=== PATIENT | female | born 1970 | race Caucasian/White ===

== ENCOUNTER 2016-10-18 14:52 | Emergency (ER) | payer OTHER ==
[~2016-10-18] VITALS: Ht 162.6 cm; Wt 62.1 kg
[2016-10-18 14:57] VITALS: TEMP 36.8; Ht 162.6 cm; Wt 62.1 kg
[2016-10-18] MEDS ORDERED: DIAZEPAM INJ 5 MG/ML 2 ML CARP IM STA (15:18)
[2016-10-18] MEDS ORDERED: KETOROLAC TROMETHAMINE 60 MG/2 ML VIAL IM STA (15:18)
[2016-10-18] MEDS ORDERED: NAPR1TAB9 PO (15:41)
[2016-10-18] MEDS ORDERED: SERT50TA PO (15:41)
[2016-10-18] MEDS ORDERED: DIAZEPAM 5MG TAB PO ONE (16:00)
[2016-10-18] MEDS ORDERED: DIAZ-165 PO (17:28)
[2016-10-18] MEDS ORDERED: NAPR-1169 PO (17:28)
--- NOTE | 2016-10-18 17:34 | EMERGENCY ROOM VISIT NOTE ---
ED Visit Note First contact with patient: 15:01 CHIEF COMPLAINT: Low back pain HISTORY OF PRESENT ILLNESS: This 46-year-old female presents to the emergency department with her daughter with complaints of mid and low back pain that started 4 days ago. 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 She has had pain radiating from her mid back just below her shoulder blades all the way to her lower back and down her right leg. The pain has gotten progressively worse to the point that she had trouble getting out of bed today. The pain was gradual in onset, is now constant and worse with movement, currently rates as 8/10. She has tried Tylenol and Aleve intermittently for the pain with no relief. Denies any bowel or bladder difficulties. There has been no leg numbness or weakness. No recent direct trauma. No vomiting or abdominal pain. REVIEW OF SYSTEMS: No significant prior back injuries, no abdominal pain, vomiting or diarrhea, no chest pain or shortness of breath. No dysuria or increased urinary frequency. PMH: The patient is healthy; there is no significant medical or surgical history. SOCIAL HISTORY: Patient lives at home. She denies tobacco, alcohol, recreational drug use. PHYSICAL EXAM: Vital Signs: Reviewed Nurse's notes. MENTAL STATUS: Alert and oriented. NECK: Supple, non-tender. ABDOMEN: Soft, non-tender, no masses or organs felt. Bowel sounds normoactive. BACK: Tenderness in the paraspinous muscles in the midthoracic and lumbar area. No tenderness over the spinous processes of the thoracic or lumbar vertebrae. LEGS: Normal strength including dorsi-flexion and plantar flexion of the feet. Normal sensation bilaterally. Negative bilateral straight leg raising, normal and symmetrical patellar and Achilles deep tendon reflexes. Normal gait observed. EMERGENCY DEPARTMENT COURSE: I examined the patient. Differential diagnosis includes back sprain, strain, muscle spasm, I doubt vertebral fracture or subluxation. Given the lack of traumatic injury to the patient's back and no red flag symptoms, I do not feel any imaging is warranted at this time to evaluate the patient's back pain. Patient was treated with IM Toradol and PO Valium, with much improved symptoms on reassessment. Patient was provided with prescription Naprosyn and Valium, and encouraged to follow up with her PCP and Workmen's Comp. regarding management of her pain. She was also given return precautions. She verbalized understanding, and was discharged home in stable condition and ambulatory. Problem List Medical Problems: (1) Diverticulitis of colon Permanent Comment: Hospitalized twice at [facility]. Status: Resolved Current/Historical Medications Scheduled Diazepam (Valium), 5 MG PO QID Naproxen (Naprosyn), 500 MG PO BID Sertraline (Zoloft), 50 MG PO DAILY Scheduled PRN Naproxen (Aleve), 220 MG PO BID PRN for Pain Allergies Coded Allergies: No Known Allergies (Unverified , 10/18/16) Vital Signs Date Time Temp Pulse Resp B/P (MAP) Pulse Ox O2 Delivery O2 Flow Rate FiO2 10/18/16 17:49 89 18 121/88 99 10/18/16 14:57 36.8 96 18 147/92 98 Room Air Medications Administered Medications (Trade) Dose Ordered Sig/Jez Route Start Time Stop Time Status Last Admin Dose Admin Ketorolac Tromethamine (Toradol Inj) 60 mg NOW STAT IM 10/18/16 15:18 10/18/16 15:19 DC 10/18/16 15:40 60 MG Diazepam (Valium Tab) 10 mg NOW ONCE PO 10/18/16 16:00 10/18/16 16:01 DC 10/18/16 16:15 10 MG Departure Information Impression Primary Impression: Back strain Dispostion Home / Self-Care Condition GOOD Prescriptions Diazepam (Valium) 5 Mg Tab 5 MG PO QID for 3 Days, #12 TAB Prov: Neelima Moore CRNP 10/18/16 Naproxen (Naprosyn) 500 Mg Tab 500 MG PO BID for 21 Days, #42 TAB Prov: Neelima Moore, SALES PRODUCER 10/18/16 Referrals Beltran Mejia M.D.([facility]) (PCP) Patient Instructions ED Exercises Lumbar Muscles, ED Sprain Strain Lumbar, [facility] Additional Instructions You have been treated in the Emergency Department for Back Pain. You have received pain medicine in the emergency department which impairs your ability to operate a vehicle. It is illegal for you to drive after receiving these medicines. You have been prescribed Naprosyn 1 tablet twice a day to be used for pain control. This is an NSAID medication. Do not take other NSAID medication such as Aleve, Advil, ibuprofen, aspirin, while you're taking this medication. You been prescribed Valium 1 tablet orally, 3-4 times per day as needed for back spasms. This medication may make you drowsy, do not drive or drink alcohol while you're taking it. Always take all medications as prescribed. For additional pain control, you can use the following [id number] medicines (if >12 yo): - Extra strength (500mg/tab) Tylenol (acetaminophen) 1-2 tabs every 6-8 hours as needed. Do not exceed 6 tablets in a 24 hour period. Avoid taking more than 3 grams (3000 mg) of Tylenol per day. This includes any other sources of acetaminophen you may take on a regular basis. Use a heating pad on the affected area for improved comfort and continued soothing relief. You should schedule a follow-up appointment in 2-3 days with the provider directed by your workman's comp for further evaluation and treatment of your back pain. Return to the Emergency Department if your current symptoms worsen despite treatment course outlined above, or if you develop any of the following symptoms : Severe worsening back pain in spite of medications, loss of control of your bowel or bladder, numbness or tingling in your groin, or development of a fever. Work Instructions Return To Work: 2 days Problem Qualifiers Primary Impression: Back strain Encounter type: initial encounter Qualified Codes: S39.012A - Strain of muscle, fascia and tendon of lower back, initial encounter
[2016-10-18 17:49] VITALS: BP 121/88; PULSE 89; O2SAT 99
== END 2016-10-18 17:51 | disposition home or self-care (01) ==
LOC: C.EDB 14:52 → C.EDD 17:51
DX: S39.012A Strain of muscle, fascia and tendon of lower back, initial encounter (principal); X50.0XXA Overexertion from strenuous movement or load, initial encounter; Y99.0 Civilian activity done for income or pay; Y93.89 Activity, other specified; Z79.899 Other long term (current) drug therapy

== ENCOUNTER → 2016-10-22 | Outpatient (CLI) | payer OTHER ==
[~2016-10-22] MED LIST: DIAZ-165 PO; NAPR-1169 PO; NAPR1TAB9 PO; SERT50TA PO
--- NOTE | 2016-10-22 15:10 | DIAGNOSTIC IMAGING REPORT ---
L-SPINE MIN 4 VIEWS ROUTINE CLINICAL HISTORY: BACK PAIN R/O COMPRESSION FX COMPARISON STUDY: No previous studies for comparison. FINDINGS: There is a transitional vertebra present. There are 6 nonrib-bearing lumbar type vertebral bodies. Accurate numbering is not possible without entire spine series. There is a grade 1 spondylolisthesis of L5 on L6. There is moderate facet joint arthropathy. No acute fractures are visualized. IMPRESSION: 1. No acute fractures 2. Transitional vertebra. Facet joint arthropathy. Grade 1 spondylolisthesis of L5 on L6. Electronically signed by: Reymundo Denney M.D. 10/22/2016 3:09 PM Dictated Date/Time: 10/22/2016 3:07 PM
== END | disposition home or self-care (01) ==
LOC: C.RAD1850 14:25
PROVIDERS: ATTEND Preventive Medicine Occupational Medicine
DX: S39.012A Strain of muscle, fascia and tendon of lower back, initial encounter (principal); X58.XXXA Exposure to other specified factors, initial encounter; M53.86 Other specified dorsopathies, lumbar region

== ENCOUNTER → 2016-11-01 | Outpatient (CLI) | payer OTHER ==
[~2016-11-01] MED LIST changes: -DIAZ-165 PO
--- NOTE | 2016-11-01 10:21 | DIAGNOSTIC IMAGING REPORT ---
LUMBAR SPINE W/O CONTRAST HISTORY: Pain. Radiculopathy. LUMBAR STRAIN WITH RADICULAR SYMPTOMS TECHNIQUE: Multiplanar multisequence MRI of the lumbar spine was performed without the use of contrast. COMPARISON: None. FINDINGS: For the purpose of the report the L5-S1 disc space will be located on axial image 23 of 25. Normal signal characteristics the vertebral bodies. Grade 1 anterolisthesis of L4 and L5 with a maximum anterolisthesis of 4 mm. Degenerative changes of posterior elements. L1-L2: No significant central canal or neural foraminal narrowing. L2-L3: No significant central canal or neural foraminal narrowing. L3-L4: Mild right posterior disc bulge. Minimal impact right anterior thecal sac. L4-L5: Moderate right posterior disc herniation. Moderate impact anterior thecal sac. Moderate narrowing right neuroforamina. L5-S1: No significant central canal or neural foraminal narrowing. IMPRESSION: 1. Right posterior disc herniation L4-L5 with moderate narrowing right neuroforamina and moderate impact anterior thecal sac. 2. These findings are accentuated by a grade 1 anterolisthesis of L4 on L5. 3. Mild right posterior disc bulge L3-L4. The above report was generated using voice recognition software. It may contain grammatical, syntax or spelling errors. Electronically signed by: [place] M.D. 11/01/2016 10:19 AM Dictated Date/Time: 11/01/2016 10:14 AM
== END | disposition home or self-care (01) ==
LOC: C.MRI 08:49
PROVIDERS: ATTEND Preventive Medicine Occupational Medicine
DX: M51.16 Intervertebral disc disorders with radiculopathy, lumbar region (principal)

== ENCOUNTER → 2016-12-28 | Outpatient (CLI) | payer OTHER ==
[~2016-12-28] MED LIST changes: -NAPR-1169 PO
[2016-12-28 13:41] LABS: BASO % 0.1 %; BASO ABS # 0.02 K/uL (0-0.2); COMPLETE YES; EOS % 0.2 %; HEMATOCRIT 40.3 % (37-47); IG% 0.2 %; LYMPH % 9.1 %; LYMPH ABS # 1.32 K/uL (1.2-3.4); MEAN CELL VOLUME 93.5 fL (80-100); MEAN CORPUSCULAR HEMOGLOBIN 31.3 pg (25-34); MEAN CORPUSCULAR HGB CONC 33.5 g/dl (32-36); MEAN PLATELET VOLUME 10.5 fL (7.4-10.4); MONO % 7.2 %; NEUT % 83.2 %; PLATELET COUNT 242 K/uL (130-400); RED BLOOD COUNT 4.31 M/uL (4.2-5.4)
[2016-12-28 13:53] LABS: PREG INTERNAL NEGATIVE QC NEG CLEAR BACKGROUND; PREG INTERNAL POSITIVE QC POS CONTROL LINE
== END | disposition home or self-care (01) ==
LOC: C.LABBC 09:49
PROVIDERS: ATTEND Orthopaedic Surgery Orthopaedic Surgery of the Spine
DX: Z01.812 Encounter for preprocedural laboratory examination (principal)

== ENCOUNTER 2017-01-24 08:14 | Inpatient (IN) | payer OTHER ==
[2017-01-08 10:33] VITALS: BMI 21.0
--- NOTE | 2017-01-23 17:29 | HISTORY & PHYSICAL EXAMINATION ---
DATE OF ADMISSION: 01/24/2017 CHIEF COMPLAINT: Back pain, lower extremity difficulty, paresthesias, numbness and tingling. She is scheduled for a posterior lumbar interbody fusion at L4-L5 lumbar spine. PAST MEDICAL HISTORY: Negative for asthma, wheezing, shortness of breath. No cardiac issues. No diabetes, no anemias, no anxiety, no pulmonary kidney or renal issues. Positive for diverticulitis. SOCIAL HISTORY: No smoking. Minimal alcohol, no illicit drug use. PAST SURGICAL HISTORY: No past surgeries. ALLERGIES: None. CURRENT MEDICATIONS: None. REVIEW OF SYSTEMS: Denies blurred vision, double vision, tinnitus or vertigo. Denies chest pain, palpitations. No asthma, wheezing, shortness of breath. No nausea, vomiting, urgency, frequency, dysuria. She admits to back pain, lower extremity difficulty, paresthesias. She has decreased range of motion, flexion, extension and side bending. She has adequate motor strength, 2/4 knee jerk reflexes, 1/4 of the Achilles, 5/5 motor, slight loss of sensation. OBJECTIVE: GENERAL: She is 5 130 pounds. No terrible distress. CARDIAC: Normal S1, S2. LUNGS: Clear to auscultation. No rales, rhonchi or wheezing. ABDOMEN: Soft, nontender. VITAL SIGNS: Blood pressure 120/80, pulse 80. IMAGING: Spondylolisthesis of the spine L4-L5. ASSESSMENT: Spondylolisthesis L4-L5. DISPOSITION: Includes a posterior lumbar interbody fusion L4-L5 lumbar spine.
[2017-01-24] VITALS (9 sets, daily range): BP systolic 100–150; BP diastolic 59–84; PULSE 68–82; TEMP 36.2–36.8; O2SAT 94–100; Ht 162.6 cm; Wt 57.7 kg
[~2017-01-24] VITALS: Ht 162.6 cm; Wt 57.7 kg
[~2017-01-24 08:14] MED LIST changes: +CEFAZOLIN 2000MG IV PUSH 10 ML IV SCH; +HYDR-4079 PO; +LACTATED RINGER'S 1000ML 1,000 ML IV SCH; +LACTATED RINGER'S 1000ML IV SCH; -NAPR1TAB9 PO; -SERT50TA PO
[2017-01-24] MEDS ORDERED: DEXAMETHASONE SOD INJ 4 MG/ML VIAL ONE (09:22)
[2017-01-24] MEDS ORDERED: ONDANSETRON INJ 2 MG/ML 2 ML VIAL ONE (09:22)
[2017-01-24] MEDS ORDERED: MIDAZOLAM HCL 1 MG/ML 2ML VIAL ONE (09:22)
[2017-01-24] MEDS ORDERED: LIDOCAINE HCL 2% 2 ML VIAL (20MG/ML) ONE (09:22)
[2017-01-24] MEDS ORDERED: NEOSTIGMINE METHYLSULFATE 1 MG/ML 10ML VIAL ONE (09:22)
[2017-01-24] MEDS ORDERED: FENTANYL CITRATE INJ 50 MCG/1 ML 2 ML VIAL ONE ×2 (09:22→13:14)
[2017-01-24] MEDS ORDERED: ROCURONIUM BROMIDE 10 MG/ML 5 ML VIAL IV ONE (09:22)
[2017-01-24] MEDS ORDERED: PROPOFOL IV EMULSION 10 MG/ML 20 ML VIAL IV ONE (09:22)
[2017-01-24] MEDS ORDERED: GLYCOPYRROLATE INJ 0.2 MG/ML VIAL ONE (09:22)
[2017-01-24] MEDS ORDERED: GELATIN SPONGE SZ 100 ONE ×2 (11:09→13:47)
[2017-01-24] MEDS ORDERED: THROMBIN FOR SOLN 20000 UNIT KIT ONE (11:09)
[2017-01-24] MEDS ORDERED: BUPIVACAINE/EPINEPHRINE 0.5% MPF 1:200,000 30 ML VIAL ONE (11:10)
[2017-01-24] MEDS ORDERED: VANCOMYCIN HCL 1000MG/20ML VIAL ONE (11:10)
[2017-01-24] MEDS ORDERED: BACITRACIN 50000 UNIT VIAL ONE (11:11)
--- NOTE | 2017-01-24 11:31 | History & Physical Bridge Note ---
H&P Re-Evaluation Bridge Note: I have examined the patient, reviewed the History & Physical and in the interval since the performance of the History & Physical I have noted the following changes of clinical significance: No changes noted
[2017-01-24] MEDS ORDERED: EpHEDrine SULFATE 50MG/5ML SYR ONE (12:25)
[2017-01-24] MEDS ORDERED: EpHEDrine SULFATE INJ 50 MG/ML AMP IV PRN (12:30)
[2017-01-24] MEDS ORDERED: ATROPINE SULFATE 0.1 MG/ML 5ML SYR IV PRN (12:30)
[2017-01-24] MEDS ORDERED: ONDANSETRON INJ 2 MG/ML 2 ML VIAL IV PRN ×2 (12:30→14:30)
[2017-01-24] MEDS ORDERED: PHENYLEPHRINE 100MCG/ML 5ML SYR ONE (12:56)
--- NOTE | 2017-01-24 14:12 | DIAGNOSTIC IMAGING REPORT ---
SPINE ONE VIEW, ANY LEVEL CLINICAL HISTORY: 47 years-old Female presenting with L4-L5 interbody fusion. TECHNIQUE: 1 fluoroscopic spot image(s) obtained as part of an intraoperative procedure. COMPARISON: 11/20/2016. FINDINGS/IMPRESSION: There has been interval transpedicular screw and alton fixation of L4-5 with interbody spacer placement. Grossly normal anatomic alignment. Please see surgical report for further details. Fluoroscopy dosage (mGy): 4.74. Fluoroscopy time: 10.1 seconds. Number of fluoroscopic spot images: 1. Electronically signed by: Wayne Cook M.D. 01/24/2017 2:11 PM Dictated Date/Time: 01/24/2017 2:10 PM
[2017-01-24] MEDS ORDERED: SODIUM CHLORIDE 0.9% 1000ML 1,000 ML IV SCH (14:27)
--- NOTE | 2017-01-24 14:29 | [facility] Post Operative Brief Note ---
Immediate Operative Summary Operative Date Jan 24, 2017. Pre-Operative Diagnosis Spondylolisthesis L4-L5. Post-Operative Diagnosis Spondylolisthesis L4-L5. Procedure(s) Performed L4-L5 Posterior Lumbar Interbody Fusion Surgeon Dr. Chilel Box Repairer Surgeon(s) Fracisco Collazo PA-C Estimated Blood Loss 350ml Findings spondy l4-5 Specimens none per surgeon Complication(s) None Disposition Recovery Room / PACU
[2017-01-24] MEDS ORDERED: PROMETHAZINE HCL INJ 12.5 MG in SODIUM CHLORIDE 0.9% 50ML 50 ML IV PRN (14:30)
[2017-01-24] MEDS ORDERED: METOCLOPRAMIDE HCL INJ 5 MG/ML 2 ML VIAL IV PRN (14:30)
[2017-01-24] MEDS ORDERED: NALOXONE HCL 0.4 MG/1 ML VIAL/CARP IV PRN (14:30)
[2017-01-24] MEDS ORDERED: LORAZEPAM INJ 1 MG in SYRINGE 0.5 ML IV PRN (14:30)
[2017-01-24] MEDS ORDERED: LORAZEPAM 1 MG TAB PO PRN (14:30)
[2017-01-24] MEDS ORDERED: MAGNESIUM HYDROXIDE SUSP 30 ML UDC PO PRN (14:30)
[2017-01-24] MEDS ORDERED: ACETAMINOPHEN 325 MG TAB PO PRN (14:30)
[2017-01-24] MEDS ORDERED: HYDROmorphone HCL 0.5MG/ML 50 ML CASSETTE ONE (14:39)
[2017-01-24] MEDS: FENTANYL CITRATE INJ 50 MCG/1 ML 2 ML VIAL IV PRN ×4 (14:44→15:03)
[2017-01-24] MEDS ORDERED: NURSING VERBAL MED ORDER ONE (14:45)
[2017-01-24] MEDS ORDERED: HYDROmorphone INJ 1 MG/ML SYR ONE (14:56)
--- NOTE | 2017-01-24 14:57 | OPERATIVE REPORT ---
DATE OF OPERATION: 01/24/2017 PREOPERATIVE DIAGNOSIS: Spondylolisthesis 4 on 5. POSTOPERATIVE DIAGNOSIS: Same. PROCEDURE: Included decompression laminectomy, complete laminectomy of L4, partial laminectomy of 5, foraminotomy, partial facetectomy, pedicle screw instrumentation and reduction of spondylolisthesis 4-5, posterior lumbar interbody fusion and complete discectomy left and right lumbar spine at L4-L5, interbody spacer implant cage placed at L4-L5. SURGEON: Dr. Chilel. DESIZING MACHINE OPERATOR HEAD END: Fracisco Collazo PA-C. COMPLICATIONS: None. OPERATION AND FINDINGS: DESCRIPTION OF PROCEDURE: The patient was taken to the operating room, a general intubated anesthetic provided to the patient. Placed prone, scrubbed, prepped and draped sterile. We made a skin incision, fascial incision, putting in a deep self-retaining. It was a significant dissection down to the lamina and facet joints. I put in a deep self-retaining retractor, did a complete laminectomy at 4, foraminotomies, partial facetectomy, significant nerve root compromise. I was pleased with the decompression. We irrigated. We then went to the pedicle screw construct safely getting pedicle screws into 5 and 4 bilaterally using anatomic landmarks and C-arm guidance, I was pleased with the placement. We then did a formal discectomy on the left hand side and the right hand side, completely evacuating the disc at this level. We then bone grafted this with autograft, plus an interbody device placed on the left and on the right elevating up the interspace and performing a reduction as well. We locked down the construct and began our closure. We first bone grafted out over the transverse process to complete the 360 fusion, placed some vancomycin powder deep to the wound, closed fascia to fascia over Hemovac drain with 1 Vicryl suture, 2-0 in the subcuticular layer, staple gun on the skin. Sterile dressing applied and drain was activated. The patient was then returned to PACU in improved stable condition. ESTIMATED BLOOD LOSS: 350. SPONGE AND NEEDLE COUNT: Correct at the close of the procedure. IMPLANTS USED: By the [employer]. I attest to the content of the Intraoperative Record and any orders documented therein. Any exception s are noted below.
[2017-01-24] MEDS ORDERED: HYDROmorphone INJ 2 MG/ML SYR/VIAL IV PRN (15:30)
[2017-01-24 15:31] LABS: HEMATOCRIT 36.4 % (37-47)
--- NOTE | 2017-01-24 15:57 | Anesthesiology Progress Note ---
Anesthesia Post Op Note Date & Time Jan 24, 2017 at 15:57 Vital Signs Pain Intensity: 5 Vital Signs Past 12 Hours Date Time Temp Pulse Resp B/P (MAP) Pulse Ox O2 Delivery O2 Flow Rate FiO2 01/24/17 15:50 80 12 106/59 98 Nasal Cannula 2 01/24/17 15:40 36.9 69 12 105/48 98 Nasal Cannula 2 01/24/17 15:30 76 13 111/64 99 Nasal Cannula 2 01/24/17 15:20 71 12 112/66 99 Nasal Cannula 2 01/24/17 15:10 70 15 112/60 99 Nasal Cannula 2 01/24/17 15:00 83 16 116/60 98 Nasal Cannula 2 01/24/17 14:50 80 29 110/66 100 Oxymask 10 01/24/17 14:40 123 15 123/87 100 Oxymask 10 01/24/17 14:34 36.6 96 12 114/79 100 Oxymask 10 01/24/17 08:43 36.7 81 16 150/84 99 Room Air Notes Mental Status: alert / awake / arousable, participated in evaluation Pt Amnestic to Procedure: Yes Nausea / Vomiting: adequately controlled Pain: adequately controlled Airway Patency, RR, SpO2: stable & adequate BP & HR: stable & adequate Hydration State: stable & adequate Anesthetic Complications: no major complications apparent
[2017-01-24] MEDS: HYDROmorphone HCL 0.5MG/ML 50 ML CASSETTE IV PRN ×2 (16:14→22:54)
[2017-01-24] MEDS: KETOROLAC TROMETHAMINE 30 MG/ML VIAL IV SCH ×2 (17:54→23:44)
[2017-01-24] MEDS: SODIUM CHLORIDE 0.9% 1000ML 1,000 ML IV SCH (17:54)
[2017-01-24] MEDS ORDERED: INFLUENZA ADMINISTRATION CHARGE ONE (19:30)
[2017-01-24] MEDS ORDERED: INFLUENZA VIRUS QUAD VACCINE 0.5 ML SYR IM. ONE (19:30)
[2017-01-24] MEDS: CEFAZOLIN IV 1,000 MG in SYRINGE 0 ML IV SCH (19:57)
[2017-01-25 03:16] VITALS: BP 94/59; PULSE 62; TEMP 36.6; O2SAT 97
[2017-01-25] MEDS: SODIUM CHLORIDE 0.9% 1000ML 1,000 ML IV SCH (03:18)
[2017-01-25] MEDS: CEFAZOLIN IV 1,000 MG in SYRINGE 0 ML IV SCH ×2 (03:18→12:28)
[2017-01-25] MEDS: KETOROLAC TROMETHAMINE 30 MG/ML VIAL IV SCH ×3 (05:40→18:48)
[2017-01-25] MEDS ORDERED: BISACODYL 10 MG SUPP PR PRN (06:00)
[2017-01-25] MEDS ORDERED: HYDROmorphone INJ 2 MG/ML SYR/VIAL IV PRN (06:00)
[2017-01-25] MEDS ORDERED: BISACODYL 5 MG TABEC PO PRN (06:00)
[2017-01-25] MEDS ORDERED: DC PCA SCH (06:00)
[2017-01-25] MEDS: OXYCODONE/ACETAMINOPHEN 5-325 TAB PO PRN ×4 (07:33→20:10)
[2017-01-25 07:46] VITALS: O2SAT 97
[2017-01-25 08:00] VITALS: BP 122/70; PULSE 68; TEMP 37.5; O2SAT 97
[2017-01-25] MEDS ORDERED: OXYCODONE/ACETAMINOPHEN 5-325 TAB PO PRN ×2 (08:00)
--- NOTE | 2017-01-25 08:23 | Anesthesiology Progress Note ---
Anesthesia Post Op Note Date & Time Jan 25, 2017 at 08:22 Vital Signs Vital Signs Past 12 Hours Date Time Temp Pulse Resp B/P (MAP) Pulse Ox O2 Delivery O2 Flow Rate FiO2 01/25/17 08:00 37.5 68 16 122/70 (87) 97 Room Air 01/25/17 07:46 97 Room Air 01/25/17 03:16 36.6 62 14 94/59 (71) 97 Room Air 01/25/17 00:00 Room Air 01/24/17 22:54 36.4 68 14 100/59 (73) 99 Room Air Notes Mental Status: alert / awake / arousable, participated in evaluation Pt Amnestic to Procedure: Yes Nausea / Vomiting: adequately controlled Pain: adequately controlled Airway Patency, RR, SpO2: stable & adequate BP & HR: stable & adequate Hydration State: stable & adequate Anesthetic Complications: no major complications apparent
--- NOTE | 2017-01-25 08:31 | ORTHOPEDICS PROGRESS NOTE ---
DATE: 01/25/2017 SUBJECTIVE: Doing well here this morning. Moderate complaints of pain but no gross neurological deficits. OBJECTIVE: 36.6 temperature. Vital signs stable. Alert, oriented, moves extremities. ASSESSMENT: Status post PLIF procedure, reduction of spondylolisthesis done yesterday. DISPOSITION: We will get her up and ambulatory today. Will work towards discharge tomorrow and/or Saturday. I believe going home will be appropriate, may be home health.
[2017-01-25] MEDS: POLYETHYLENE (MIRALAX) 17 GM PACK PO SCH (09:00)
[2017-01-25] MEDS: HYDROmorphone INJ 1 MG/ML SYR IV PRN ×3 (10:25→21:54)
[2017-01-25 11:58] VITALS: BP 108/70; PULSE 88; TEMP 36.9; O2SAT 99
[2017-01-25] MEDS ORDERED: NURSING VERBAL MED ORDER ONE (13:15)
--- NOTE | 2017-01-25 14:09 | Discharge Instructions ---
Discharge Instructions Date of Service Jan 25, 2017. Admission Reason for Admission: Spondylolisthesis Discharge Discharge Diagnosis / Problem: same Discharge Goals Goal(s): Improve function Activity Recommendations Activity Limitations: as noted below Exercise/Sports Limitations: until after follow-up appointment May Resume Sexual Activity: after follow-up appointment Shower/Bathe: keep incision dry . Instructions / Follow-Up Instructions / Follow-Up MEDICATIONS: Please take your prescriptions as instructed at your pre-op appointment. SPECIAL CARE: The following information is intended to answer some of the common questions and concerns regarding your surgery. Each patient is an individual and receives individual counselling throughout the course of treatment, from diagnosis to surgery all the way through recovery. What follows is not an exhaustive list, but should be a useful guide to some of the common questions and concerns patients have regarding their surgeries. These are not provided to keep you from calling us; rather, they give you something accurate and concrete to reference as you recover from your procedure. If you need us, we are available to you. As always, if you are not sure about something, call us at [phone]. MEDICAL EMERGENCIES: For these conditions, call 911 or go to your local hospital-based Emergency Department - not [facility] or equivalent. * Paralysis * Severe chest pain or difficulty breathing * Swelling or redness of either leg Spine procedures can be rather complex and though complications are rare, they do occur. In such cases, effective advice regarding emergency situations cannot always be addressed over the telephone. You may be referred to the emergency department for more effective management of your problem. Activity Limitations: It is important to give your body time to heal, so please limit your activities : * In general, don't do anything that moves your spine too much. You should avoid contact sports, twisting or heavy lifting while you recover. * 5-10 pounds is all you should attempt to lift. * You should not plan on driving for approximately 3 weeks and you should avoid traveling more than 30-45 minutes at a time. Longer trips should be broken down with walking breaks spaced appropriately. * Physical therapy is not usually required. * Walking and good posture practices will help you recover and regain your function. * Avoid straining or sudden changes in position. * In general, the goal is to take it easy and recover. Don't cause any new problems. Just relax. Showers: * Do not take a bath, use a Jacuzzi or hot tub or otherwise submerge your incision. * It is usually safe to take a shower 4-5 days after your surgery. * Your incision does not require any special creams or ointments. * Simply clean it with soap and water, dry and re-dress with a clean bandage afterwards. Incision: * Keep incision clean, dry and protected until your first follow-up appointment. * Some amount of drainage and redness is normal. Any drainage should be fairly clear and not have a foul odor. * If you feel anything is wrong or you have excessive drainage, please call us. * Your stitches and alvino will be removed 10-14 days after your surgery. At the time of your first post-op visit. * Neck surgeries are typically closed with a suture underneath the skin. The steri-strips over the incision should be maintained until we see you in the office. Bracing: * You may be provided with a back or neck brace to encourage good posture and prevent injury. It will remind you not to do too much as you heal and will alert others to the fact that you have had a surgery. * Back braces may be removed for showers and when you are resting at home. They must be worn when you are walking around for any period of time or for travel. * For neck surgery, you will likely be provided with two cervical collars. The soft collar ([place] or foam rubber) is worn most commonly throughout the day and while sleeping. The plastic collar (provided at the hospital) is for showering/bathing. * Except while eating, collars should remain in place. More specifically, bracing is provided for a purpose and should be worn. * Please obtain your brace or collars prior to your operation and bring them to the hospital with you on the day of surgery. * You should also bring your collars to your post-op appointment with Dr. Chilel. You should always take good care of your body and practice healthy habits, especially following surgery. You should: * Follow your doctor's treatment plan * Sit and stand properly with good posture (ears over shoulders, shoulders over hips) Don't slouch * Learn to lift correctly * Exercise regularly (low-impact aerobic exercise is especially good, but check with your doctor first) * Generally, be up and walking for 5-10 minutes at a time at least 3-4 times per day from the day you get home * Increasing walking to tolerance until you can walk for 20-30 minutes at a time * Attain and maintain a healthy body weight * Eat healthy foods ( a well-balanced, low-fat diet rich in fruits and vegetables) and get enough calcium * Avoid excessive use of alcohol When to call our office - If you notice any of the following: * Increased pain not relieve by pain medicine * Fevers greater then 100 degrees F, chills or flu symptoms * Increased redness around incision * Drainage from the incision that is not clear * Any foul smelling drainage * Swelling or fluid collection beneath the skin Miscellaneous: * In the hospital, you may be given a walker or cane for support while walking. These are temporary needs and are intended to prevent injuries due to falls. You may discontinue them when you feel strong and steady enough on your feet. * Sleep in a comfortable position. We find that many patients find a lounge chair or recliner with several pillows to be beneficial in the early post-operative period. * The support stockings should be used for 7-10 days and may be discontinued when you are back to walking more and conducting usual household activities. No problem is insignificant. We are here to help you and get you well. Contact us at [phone]. Definitions: Foraminotomy: If part of the disc or a bone spur (osteophyte) is pressing on a nerve as it leaves the vertebra (through an exit called the foramen), a foraminotomy may be done. Otomy means "to make an opening." A foraminotomy is making the opening of the foramen larger, so the nerve can exit without being compressed. Laminotomy: Similar to the foraminotomy, a laminotomy makes a larger opening, this time in your bony plate protecting your spinal canal and spinal cord (the lamina). The lamina may be pressing on your nerve, so the surgeon may make more room for the nerves using a laminotomy. Laminectomy: Sometimes, a laminotomy is not sufficient. The surgeon may need to remove all or part of the lamina. This procedure is called a laminectomy. This can often be done at many levels without any harmful effects. Current Hospital Diet Patient's current hospital diet: Regular Diet Discharge Diet Recommended Diet: Regular Diet Procedures Procedures Performed: L4-L5 Posterior Lumbar Interbody Fusion Pending Studies Studies pending at discharge: no Medical Emergencies . Who to Call and When: Medical Emergencies: If at any time you feel your situation is an emergency, please call 911 immediately. . Non-Emergent Contact Non-Emergency issues call your: Surgeon . "Provider Documentation" section prepared by Flako Chilel. . VTE Core Measure Inpt VTE Proph given/why not?: Treatment not indicated
[2017-01-25 14:54] VITALS: BP 104/69; PULSE 87; TEMP 36.6; O2SAT 98
[2017-01-25 22:49] VITALS: BP 102/67; PULSE 85; TEMP 36.8; O2SAT 98
[2017-01-26] MEDS: OXYCODONE/ACETAMINOPHEN 5-325 TAB PO PRN ×5 (00:46→20:42)
[2017-01-26 06:15] VITALS: BP 111/73; PULSE 88; TEMP 36.9; O2SAT 98
[2017-01-26] MEDS: HYDROmorphone INJ 1 MG/ML SYR IV PRN ×2 (07:09→14:06)
[2017-01-26] MEDS: POLYETHYLENE (MIRALAX) 17 GM PACK PO SCH (08:42)
[2017-01-26 15:54] VITALS: BP 109/72; PULSE 84; TEMP 36.7; O2SAT 97
[2017-01-26 23:20] VITALS: BP 91/57; PULSE 80; TEMP 36.8; O2SAT 95
[2017-01-27] MEDS: OXYCODONE/ACETAMINOPHEN 5-325 TAB PO PRN ×2 (04:43→09:40)
[2017-01-27 06:49] VITALS: BP 94/66; PULSE 77; TEMP 36.7; O2SAT 96
[2017-01-27] MEDS: HYDROmorphone INJ 1 MG/ML SYR IV PRN ×2 (07:02→12:27)
[2017-01-27] MEDS: POLYETHYLENE (MIRALAX) 17 GM PACK PO SCH (08:16)
[2017-01-27] MEDS ORDERED: OXYC-57 PO (09:56)
[2017-01-27] MEDS ORDERED: DLDI IV (09:59)
[2017-01-27] MEDS ORDERED: ATV1 PO (09:59)
[2017-01-27] MEDS ORDERED: HYDR2TAB48 PO (10:18)
[2017-01-27 10:47] VITALS: BP 94/66; PULSE 77; TEMP 36.7; O2SAT 96
--- NOTE | 2017-01-27 17:22 | DISCHARGE SUMMARY ---
SUBJECTIVE: Alert and oriented. Vital signs stable, pain controlled. Neurologically intact. No chest pain or shortness of breath. ASSESSMENT: Status post reconstructive spine surgery. DISPOSITION: We will get her home later on today. Medications on her chart. Prescription for a walker. She has instructions, precautions, and we will see her back in approximately 10 days.
--- NOTE | 2017-01-28 14:33 | DISCHARGE SUMMARY ---
SUBJECTIVE: Alert and oriented, patient controlled. No chest pain, shortness of breath. OBJECTIVE: VITAL SIGNS: Stable, 36.7 temperature. NECK: Incision clean. ASSESSMENT: Multiple levels cervical spine arthrodesis and discectomy, doing well in the short run. DISPOSITION: Will try to get her discharged home later on today with instruction, precautions and education. Followup examination will be in the office. She has instructions given there as well.
== END 2017-01-27 13:13 | disposition home or self-care (01) | DRG 455 ==
LOC: C.ACU 08:14 → C.3E 09:00 → UNDOADMIN 14:33 → ENRESERV 15:45
PROVIDERS: ADMIT Orthopaedic Surgery Orthopaedic Surgery of the Spine; ATTEND Orthopaedic Surgery Orthopaedic Surgery of the Spine
PROC: 0ST40ZZ Resection of Lumbosacral Disc, Open Approach (ICD-10-PCS; principal; 2017-01-24 10:00)
PROC: 0SG10AJ Fusion of 2 or more Lumbar Vertebral Joints with Interbody Fusion Device, Posterior Approach, Anterior Column, Open Approach (ICD-10-PCS; principal; 2017-01-24 10:00)
PROC: 0SG10J1 Fusion of 2 or more Lumbar Vertebral Joints with Synthetic Substitute, Posterior Approach, Posterior Column, Open Approach (ICD-10-PCS; principal; 2017-01-24 10:00)
DX: M43.16 Spondylolisthesis, lumbar region (principal)

== ENCOUNTER 2017-03-10 16:43 | Inpatient (IN) | payer OTHER ==
[~2017-03-10] VITALS: Ht 162.6 cm; Wt 57.1 kg
[~2017-03-10 16:43] MED LIST changes: +ATV1 PO; -CEFAZOLIN 2000MG IV PUSH 10 ML IV SCH; +DLDI IV; -LACTATED RINGER'S 1000ML 1,000 ML IV SCH; -LACTATED RINGER'S 1000ML IV SCH; +OXYC-57 PO
[2017-03-10] MEDS ORDERED: MoRPHine SULFATE 4 MG/ML 1 ML CARP\\VIAL IV STA ×2 (17:23→18:35)
[2017-03-10] MEDS ORDERED: ONDANSETRON INJ 2 MG/ML 2 ML VIAL IV STA (17:23)
[2017-03-10] MEDS ORDERED: ATV/1 PO (17:53)
[2017-03-10 17:54] LABS: BASO % 0.1 %; BASO ABS # 0.02 K/uL (0-0.2); HEMATOCRIT 41.4 % (37-47); IG# 0.05 K/uL (0.00-0.02); LYMPH % 9.6 %; LYMPH ABS # 1.55 K/uL (1.2-3.4); MEAN CELL VOLUME 89.6 fL (80-100); MEAN CORPUSCULAR HEMOGLOBIN 30.3 pg (25-34); MEAN CORPUSCULAR HGB CONC 33.8 g/dl (32-36); MEAN PLATELET VOLUME 10.4 fL (7.4-10.4); MONO % 8.3 %; MONO ABS # 1.35 K/uL (0.11-0.59); NEUT % 81.7 %; NEUT ABS # 13.24 K/uL (1.4-6.5); PLATELET COUNT 241 K/uL (130-400); RED CELL DISTRIBUTION WIDTH CV 12.7 % (11.5-14.5); RED CELL DISTRIBUTION WIDTH SD 41.2 fL (36.4-46.3); WHITE BLOOD COUNT 16.21 K/uL (4.8-10.8)
[2017-03-10 18:12] LABS: CREATININE 0.97 mg/dl (0.60-1.20)
[2017-03-10 18:13] LABS: ALBUMIN 3.7 gm/dl (3.4-5.0); CALCIUM 9.8 mg/dl (8.5-10.1); POTASSIUM 3.9 mmol/L (3.5-5.1)
[2017-03-10 18:16] LABS: TOTAL PROTEIN 8.5 gm/dl (6.4-8.2)
--- NOTE | 2017-03-10 18:18 | DIAGNOSTIC IMAGING REPORT ---
ABDOMEN AND PELVIS CT WITHOUT CONTRAST CT DOSE: 271.63 mGy.cm HISTORY: Left flank pain. diffuse abd pain eval for perforation/divertic TECHNIQUE: Multiaxial CT images of the abdomen and pelvis were performed without contrast. A dose lowering technique was utilized adhering to the principles of ALARA. COMPARISON STUDY: Abdomen and pelvis CT 09/04/2013. FINDINGS: The lung bases are clear. Posterior decompression fusion within the lower lumbar spine with pedicle screws and rods. The unenhanced liver, gallbladder, pancreas, spleen, adrenal glands, and kidneys are unremarkable. No significant retroperitoneal lymphadenopathy. The bladder, uterus, bilateral adnexa are within normal limits. Normal appendix. Trace pelvic free fluid. This is likely physiologic. Colonic diverticulosis. Pericolonic fat stranding at the distal descending colon with moderate bowel wall thickening and an inflamed diverticulum. Findings are consistent with acute diverticulitis. Small cluster of gas bubbles posterior to the thickened descending colon on image 254 could be within a diverticulum or represent focal microperforation. No loculated fluid collections at this time to suggest an abscess. Normal appendix. IMPRESSION: Pericolonic fat stranding at the distal descending colon with moderate bowel wall thickening and an inflamed diverticulum. Findings are consistent with acute diverticulitis. Small cluster of gas bubbles posterior to the thickened descending colon could be within a diverticulum or represent focal microperforation. No loculated fluid collections at this time to suggest an abscess. Recommend follow-up to ensure resolution. Electronically signed by: Bud Gaffney M.D. 03/10/2017 6:16 PM Dictated Date/Time: 03/10/2017 6:08 PM
[2017-03-10] MEDS ORDERED: PIPERACILLIN/TAZOBACTAM 4.5 GM/100ML D5W IV STA (18:32)
--- NOTE | 2017-03-10 18:39 | History and Physical ---
History & Physical Date & Time of Service: Mar 10, 2017 at 18:38 Chief Complaint: Pain In Lt Side Primary Care Physician: Beltran Mejia M.D.(YENIFER) History of Present Illness Source: patient 47 yo F with hx of prior Diverticulitis x2 approx 11 yrs back , presents to ED with complain of severe intractable Left lower quadrant pain , associated with low grade fever , one episode of diarrhea , nausea Her symptom started yesterday afternoon , initially began as a dull aching pain later became severe sharp throbbing pain , associated with nausea , no vomiting pt had prior episodes of Diverticulitis of colon at similar site ( left lower quadrant ) approx 11 yrs back and repeat episode 2-3 yrs after was treated at [facility] Had colonoscopy done by Dr Lizama after Ist episode -was told chronic diverticulosis, no polyp or sign of inflammation noted Did not had any repeat colonoscopy in past 10 yrs during my interview pt was still in sever abdominal pain 11/20 , received 4 mg IV morphine approx 1 hr back , says it only took edge off , but the pain came back in 15 mins WBC elevated [address] ABDOMEN /PELVIS SHOWS : Pericolonic fat stranding at the distal descending colon with moderate bowel wall thickening and an inflamed diverticulum. Findings are consistent with acute diverticulitis. Small cluster of gas bubbles posterior to the thickened descending colon could be within a diverticulum or represent focal microperforation. No loculated fluid collections at this time to suggest an abscess. Past Medical/Surgical History Medical Problems: (1) Diverticulitis of colon Permanent Comment: Hospitalized twice at [facility]. Status: Resolved (2) Ileitis Status: Resolved (3) Spondylolisthesis, lumbar region Status: Resolved Surgical Problems: (1) Hx of lumbar discectomy Status: Resolved Family History No pertinent family history Social History Smoking Status: Former Smoker Marital Status: Housing status: lives with family Occupational Status: employed Immunizations History of Influenza Vaccine: Yes History of Tetanus Vaccine?: Unknown History of Pneumococcal: No History of Hepatitis B Vaccine: No Allergies Coded Allergies: No Known Allergies (Unverified , 01/24/17) Home Medications Scheduled PRN Hydrocodone/Acetaminophen 10MG/325MG ([place] 10MG/325MG), 1-2 TABS PO Q6H PRN for Pain Lorazepam (Ativan), 1 MG PO Q6H PRN for Anxiety Review of Systems Constitutional: + fever, + chills, + weakness, + fatigue Eyes: No worsening of vision, No eye pain, No redness, No discharge, No diplopia, No problem reported ENT: No hearing loss, No unusual epistaxis, No nasal symptoms, No sore throat, No tinnitus, No dental problems, No trouble swallowing, No problem reported Respiratory: No cough, No sputum, No wheezing, No shortness of breath, No dyspnea on exertion, No dyspnea at rest, No hemoptysis, No problem reported Cardiovascular: No chest pain, No orthopnea, No PND, No edema, No claudication , No palpitations, No problem reported Abdomen: + pain (left lower quardrant sharp severe pain /consttant ), + nausea , + vomiting, + diarrhea Musculoskeletal: No joint pain, No muscle pain, No swelling, No calf pain, No problem reported Genitourinary - Female: No dysuria, No urinary frequency, No urinary urgency, No urinary incontinence, No urinary retention, No hematuria, No dysmenorrhea, No menorrhagia, No metrorrhagia, No rash, No vaginal bleeding, No vaginal discharge, No vaginal itching, No vulvodynia, No , No problem reported Neurologic: No memory loss, No paralysis, No weakness, No numbness/tingling, No vertigo, No balance problems, No problem reported Psychiatric: No depression symptoms, No anhedonism, No anxiety, No insomnia, No substance abuse, No problem reported Endocrine: No fatigue, No excessive thirst, No excessive urination, No problem reported Physical Exam Vital Signs Date Time Temp Pulse Resp B/P (MAP) Pulse Ox O2 Delivery O2 Flow Rate FiO2 03/10/17 18:26 83 03/10/17 18:23 82 20 119/95 94 Room Air 03/10/17 17:04 37.1 117 18 126/86 99 Room Air General Appearance: + moderate distress (due to abdominal pain ) Head: normocephalic, atraumatic Eyes: normal inspection, sclerae normal ENT: normal ENT inspection Neck: thyroid normal, no JVD, no carotid bruits, trachea midline Respiratory/Chest: chest non-tender, lungs clear, normal breath sounds, no respiratory distress Cardiovascular: regular rate, rhythm, no edema, normal peripheral pulses Abdomen/GI: + tenderness (left lower quadrant + tenderness ), + abnormal bowel sounds (diminished ), + guarding (left lower quadrant ), + rebound (left lower quadrant tenderness and rebound pain ), + pertinent finding (left lower quadrant markedly tender , ) Extremities/Musculoskelatal: normal inspection, normal capillary refill, no pedal edema Neurologic/Psych: no motor/sensory deficits, alert, oriented x 3 Skin: normal color, warm/dry Lymphatic: no adenopathy Diagnostics Laboratory Results Results Past 24 Hours Test 03/10/17 17:30 Range/Units White Blood Count 16.21 4.8-10.8 K/uL Red Blood Count 4.62 4.2-5.4 M/uL Hemoglobin 14.0 12.0-16.0 g/dL Hematocrit 41.4 37-47 % Mean Corpuscular Volume 89.6 80-100 fL Mean Corpuscular Hemoglobin 30.3 25-34 pg Mean Corpuscular Hemoglobin Concent 33.8 32-36 g/dl Platelet Count 241 130-400 K/uL Mean Platelet Volume 10.4 7.4-10.4 fL Neutrophils (%) (Auto) 81.7 % Lymphocytes (%) (Auto) 9.6 % Monocytes (%) (Auto) 8.3 % Eosinophils (%) (Auto) 0.0 % Basophils (%) (Auto) 0.1 % Neutrophils # (Auto) 13.24 1.4-6.5 K/uL Lymphocytes # (Auto) 1.55 1.2-3.4 K/uL Monocytes # (Auto) 1.35 0.11-0.59 K/uL Eosinophils # (Auto) 0.00 0-0.5 K/uL Basophils # (Auto) 0.02 0-0.2 K/uL RDW Standard Deviation 41.2 36.4-46.3 fL RDW Coefficient of Variation 12.7 11.5-14.5 % Immature Granulocyte % (Auto) 0.3 % Immature Granulocyte # (Auto) 0.05 0.00-0.02 K/uL Sodium Level 137 136-145 mmol/L Potassium Level 3.9 3.5-5.1 mmol/L Chloride Level 103 98-107 mmol/L Carbon Dioxide Level 24 21-32 mmol/L Anion Gap 10.0 3-11 mmol/L Blood Urea Nitrogen 6 7-18 mg/dl Creatinine 0.97 0.60-1.20 mg/dl Est Creatinine Clear Calc Drug Dose 61.3 ml/min Estimated GFR () 80.0 Estimated GFR (Non- 69.1 BUN/Creatinine Ratio 6.3 10-20 Random Glucose 104 70-99 mg/dl Calcium Level 9.8 8.5-10.1 mg/dl Total Bilirubin 0.8 0.2-1 mg/dl Direct Bilirubin 0.2 0-0.2 mg/dl Aspartate Amino Transf (AST/SGOT) 11 15-37 U/L Alanine Aminotransferase (ALT/SGPT) 9 12-78 U/L Alkaline Phosphatase 142 45-117 U/L Total Protein 8.5 6.4-8.2 gm/dl Albumin 3.7 3.4-5.0 gm/dl Lipase 164 73-393 U/L Diagnostic Radiology ABDOMEN AND PELVIS CT WITHOUT CONTRAST CT DOSE: 271.63 mGy.cm HISTORY: Left flank pain. diffuse abd pain eval for perforation/divertic TECHNIQUE: Multiaxial CT images of the abdomen and pelvis were performed without contrast. A dose lowering technique was utilized adhering to the principles of ALARA. COMPARISON STUDY: Abdomen and pelvis CT 09/04/2013. FINDINGS: The lung bases are clear. Posterior decompression fusion within the lower lumbar spine with pedicle screws and rods. The unenhanced liver, gallbladder, pancreas, spleen, adrenal glands, and kidneys are unremarkable. No significant retroperitoneal lymphadenopathy. The bladder, uterus, bilateral adnexa are within normal limits. Normal appendix. Trace pelvic free fluid. This is likely physiologic. Colonic diverticulosis. Pericolonic fat stranding at the distal descending colon with moderate bowel wall thickening and an inflamed diverticulum. Findings are consistent with acute diverticulitis. Small cluster of gas bubbles posterior to the thickened descending colon on image 254 could be within a diverticulum or represent focal microperforation. No loculated fluid collections at this time to suggest an abscess. Normal appendix. IMPRESSION: Pericolonic fat stranding at the distal descending colon with moderate bowel wall thickening and an inflamed diverticulum. Findings are consistent with acute diverticulitis. Small cluster of gas bubbles posterior to the thickened descending colon could be within a diverticulum or represent focal microperforation. No loculated fluid collections at this time to suggest an abscess. Recommend follow-up to ensure resolution. Impression Assessment and Plan ACUTE COLONIC DIVERTICULITIS WITH MICROPERFORATION : presents with acute abdominal pain localized to Left lower quadrant will Leukocytosis , low grade fever , Nausea /diarrhea CT abdomen /pelvis : acute descending colon diverticulitis with micro perforation admitted to Medical ( vitals stable /Afebrile ) Bowel rest with NPO except ice chips and sips of water empiric Abx with IV Zosyn IV fluid resuscitation; Pain control GI eval requested Surgery consulted due to evidence of microperforation in CT scan ANXIETY DISORDER : has not needed to take home PO Ativan in recent months PRN IV Ativan ordered for anxiety LEUKOCYTOSIS : due to above empiric Abx with IV Zosyn ordered for Stool for C diff /stool culture follow CBC daily FULL CODE DVT PROPHYLAXIS : Low risk SCD and Teds Ambulate Pharmacological anticoagulation avoided in case pt requires surgery DISPOSITION : expected to be discharged home when medically stable Medicine follow up with Dr Mejia will need out pt GI follow up for colonoscopic eval in 4-6 weeks Level of Care Med/Surg Resuscitation Status FULL RESUSCITATION VTE Prophylaxis Given or contraindicated: Laila Whitfield, SCD's Additional Copies To Beltran Mejia M.D.(YENIFER)
[2017-03-10] MEDS ORDERED: MoRPHine SULFATE 10 MG/ML CARP/VIAL IV PRN (19:15)
[2017-03-10] MEDS ORDERED: MoRPHine SULFATE 4 MG/ML 1 ML CARP\\VIAL IV PRN (19:15)
[2017-03-10] MEDS ORDERED: PIPERACILL/TAZOBAC CONSULT ACTIVE PRN (19:15)
[2017-03-10] MEDS ORDERED: LORAZEPAM 2 MG/ML 1 ML VIAL IV PRN (19:30)
[2017-03-10 19:40] VITALS: BP 111/72; PULSE 67; TEMP 36.9; O2SAT 98; Ht 162.6 cm; Wt 57.1 kg
[2017-03-10] MEDS ORDERED: LORAZEPAM INJ 0.5 MG in SYRINGE 0.75 ML IV PRN (20:00)
[2017-03-10] MEDS: SODIUM CHLORIDE 0.9% 1000ML 1,000 ML IV SCH (20:03)
[2017-03-10] MEDS ORDERED: HYDROmorphone INJ 2 MG/ML SYR/VIAL IV PRN (20:15)
[2017-03-10 23:13] VITALS: BP 105/66; PULSE 72; TEMP 37; O2SAT 97
--- NOTE | 2017-03-10 23:16 | EMERGENCY ROOM VISIT NOTE ---
History Report prepared by Solange: Marissa Aranda Under the Supervision of: Dr. Gideon Macias M.D. First contact with patient: 17:11 Chief Complaint: FLANK PAIN Stated Complaint: PAIN IN LT SIDE History of Present Illness The patient is a 47 year old female who presents to the Emergency Room with complaints of constant, sharp LLQ pain since yesterday. She notes this feels like her prior diverticulitis. She currently rates her pain a 10/10 in severity. She has not had a flare up of diverticulitis in a few years. She notes diarrhea, though denies any rectal bleeding. She denies any vomiting. Per , she has had a fever of 99.8 this morning. She denies any chance of . Source of History: patient Onset: since yesterday Position: abdomen (LLQ) Symptom Intensity: 10/10 Quality: sharp Timing: constant Associated Symptoms: + fevers, + diarrhea, No vomiting Note: She denies any rectal bleeding. Review of Systems See HPI for pertinent positives & negatives. A total of 10 systems reviewed and were otherwise negative. Past Medical & Surgical Medical Problems: (1) Diverticulitis of colon (2) Ileitis (3) Spondylolisthesis, lumbar region Surgical Problems: (1) Hx of lumbar discectomy Family History No pertinent family history Social History Smoking Status: Former Smoker Smokeless Tobacco Use: No Alcohol Use: occasionally Drug Use: none Marital Status: Housing Status: lives with family Occupation Status: employed Current/Historical Medications Scheduled PRN Hydrocodone/Acetaminophen 10MG/325MG ([place] 10MG/325MG), 1-2 TABS PO Q6H PRN for Pain Lorazepam (Ativan), 1 MG PO Q6H PRN for Anxiety Allergies Coded Allergies: No Known Allergies (Unverified , 01/24/17) Physical Exam Vital Signs Date Time Temp Pulse Resp B/P (MAP) Pulse Ox O2 Delivery O2 Flow Rate FiO2 03/10/17 18:26 83 03/10/17 18:23 82 20 119/95 94 Room Air 03/10/17 17:04 37.1 117 18 126/86 99 Room Air Physical Exam Constitutional: Vital signs reviewed. Eyes: Pupils are equal round reactive to light. Conjunctiva are noninjected. ENT: Pharynx is clear without erythema or exudate. Mucous membranes are moist. Neck supple without meningeal signs. Respiratory: Clear to auscultation bilaterally. Breath sounds are equal bilaterally. Cardiovascular: Tachycardic rate and regular rhythm. No rubs or gallops. GI: Soft, nondistended and diffuse abdominal tenderness greatest in LLQ, no rebound. Bowel sounds are present. Musculoskeletal: No peripheral edema. No lower extremity tenderness. Integumentary: No cyanosis. Neurological: The patient is awake and alert. No focal deficits. Psychiatric: Anxious. Medical Decision & Procedures ER Provider Diagnostic Interpretation: Radiology results as stated below per my review and the radiologist's interpretation: ABDOMEN AND PELVIS CT WITHOUT CONTRAST CT DOSE: 271.63 mGy.cm HISTORY: Left flank pain. diffuse abd pain eval for perforation/divertic TECHNIQUE: Multiaxial CT images of the abdomen and pelvis were performed without contrast. A dose lowering technique was utilized adhering to the principles of ALARA. COMPARISON STUDY: Abdomen and pelvis CT 09/04/2013. FINDINGS: The lung bases are clear. Posterior decompression fusion within the lower lumbar spine with pedicle screws and rods. The unenhanced liver, gallbladder, pancreas, spleen, adrenal glands, and kidneys are unremarkable. No significant retroperitoneal lymphadenopathy. The bladder, uterus, bilateral adnexa are within normal limits. Normal appendix. Trace pelvic free fluid. This is likely physiologic. Colonic diverticulosis. Pericolonic fat stranding at the distal descending colon with moderate bowel wall thickening and an inflamed diverticulum. Findings are consistent with acute diverticulitis. Small cluster of gas bubbles posterior to the thickened descending colon on image 254 could be within a diverticulum or represent focal microperforation. No loculated fluid collections at this time to suggest an abscess. Normal appendix. IMPRESSION: Pericolonic fat stranding at the distal descending colon with moderate bowel wall thickening and an inflamed diverticulum. Findings are consistent with acute diverticulitis. Small cluster of gas bubbles posterior to the thickened descending colon could be within a diverticulum or represent focal microperforation. No loculated fluid collections at this time to suggest an abscess. Recommend follow-up to ensure resolution. Electronically signed by: Bud Gaffney M.D. 03/10/2017 6:16 PM Dictated Date/Time: 03/10/2017 6:08 PM Laboratory Results 03/10/17 17:30 Red Blood Count 4.62, Mean Corpuscular Volume 89.6, Mean Corpuscular Hemoglobin 30.3, Mean Corpuscular Hemoglobin Concent 33.8, Mean Platelet Volume 10.4, Neutrophils (%) (Auto) 81.7, Lymphocytes (%) (Auto) 9.6, Monocytes (%) (Auto) 8.3, Eosinophils (%) (Auto) 0.0, Basophils (%) (Auto) 0.1, Neutrophils # (Auto) 13.24, Lymphocytes # (Auto) 1.55, Monocytes # (Auto) 1.35, Eosinophils # (Auto) 0.00, Basophils # (Auto) 0.02 03/10/17 17:30 Test 03/10/17 17:30 White Blood Count 16.21 K/uL (4.8-10.8) Red Blood Count 4.62 M/uL (4.2-5.4) Hemoglobin 14.0 g/dL (12.0-16.0) Hematocrit 41.4 % (37-47) Mean Corpuscular Volume 89.6 fL (80-100) Mean Corpuscular Hemoglobin 30.3 pg (25-34) Mean Corpuscular Hemoglobin Concent 33.8 g/dl (32-36) Platelet Count 241 K/uL (130-400) Mean Platelet Volume 10.4 fL (7.4-10.4) Neutrophils (%) (Auto) 81.7 % Lymphocytes (%) (Auto) 9.6 % Monocytes (%) (Auto) 8.3 % Eosinophils (%) (Auto) 0.0 % Basophils (%) (Auto) 0.1 % Neutrophils # (Auto) 13.24 K/uL (1.4-6.5) Lymphocytes # (Auto) 1.55 K/uL (1.2-3.4) Monocytes # (Auto) 1.35 K/uL (0.11-0.59) Eosinophils # (Auto) 0.00 K/uL (0-0.5) Basophils # (Auto) 0.02 K/uL (0-0.2) RDW Standard Deviation 41.2 fL (36.4-46.3) RDW Coefficient of Variation 12.7 % (11.5-14.5) Immature Granulocyte % (Auto) 0.3 % Immature Granulocyte # (Auto) 0.05 K/uL (0.00-0.02) Anion Gap 10.0 mmol/L (3-11) Est Creatinine Clear Calc Drug Dose 61.3 ml/min Estimated GFR () 80.0 Estimated GFR (Non- 69.1 BUN/Creatinine Ratio 6.3 (10-20) Calcium Level 9.8 mg/dl (8.5-10.1) Total Bilirubin 0.8 mg/dl (0.2-1) Direct Bilirubin 0.2 mg/dl (0-0.2) Aspartate Amino Transf (AST/SGOT) 11 U/L (15-37) Alanine Aminotransferase (ALT/SGPT) 9 U/L (12-78) Alkaline Phosphatase 142 U/L (45-117) Total Protein 8.5 gm/dl (6.4-8.2) Albumin 3.7 gm/dl (3.4-5.0) Lipase 164 U/L (73-393) Laboratory results as reviewed by me. Medications Administered Medications (Trade) Dose Ordered Sig/Jez Route Start Time Stop Time Status Last Admin Dose Admin Morphine Sulfate (MoRPHine SULFATE INJ) 4 mg ONE STAT IV 03/10/17 17:23 03/10/17 17:24 DC 03/10/17 17:46 4 MG Ondansetron HCl (Zofran Inj) 4 mg NOW STAT IV 03/10/17 17:23 03/10/17 17:24 DC 03/10/17 17:45 4 MG Piperacillin Sod/ Tazobactam Sod (Zosyn Iv) 4.5 gm NOW STAT IV 03/10/17 18:32 03/10/17 18:33 DC 03/10/17 18:37 4.5 GM Morphine Sulfate (MoRPHine SULFATE INJ) 4 mg NOW STAT IV 03/10/17 18:35 03/10/17 18:36 DC 03/10/17 19:10 4 MG ED Course 1720: The patient was evaluated in room A4B. A complete history and physical exam was performed. 172: Ordered Zofran 4 mg IV and Morphine Sulfate 4 mg IV 182: I reassessed the patient at this time. She is feeling better, though requests more pain medications. 1831: Ordered Zosyn 4.5 gm IV 1835: Ordered Morphine Sulfate 4 mg IV 1836: [facility] the patients case. The patient will be evaluated by the [facility] for further management. Medical Decision This is a 47-year-old female presents with left-sided abdominal pain and diarrhea. Differential diagnosis includes diverticulitis, peritonitis, perforation, abscess, colitis, enteritis. I did perform a limited focused review of portions of the patient's old chart on the electronic medical record. The patient had a discectomy of the lumbar spine in January 2017. I did evaluate the patient as noted above. IV access was established. I did treat the patient with IV Zofran and morphine. I did order and review the patient's blood work as noted in the electronic medical record. Her white blood cell count is elevated. I did order a CT of the abdomen and pelvis. I did review the images myself as well as the radiology report as described above. She does have evidence of acute diverticulitis with microperforation. I did discuss the test results with the patient. She is feeling better but still has some pain. She was given additional morphine IV. I did also treat her with Zosyn IV. I did recommend hospitalization for further care and evaluation. I did discuss the case with the hospitalist and shoe parts caser. Medication Reconcilliation Current Medication List: was personally reviewed by me Blood Pressure Screening Patient's blood pressure: Elevated blood pressure Blood pressure disposition: Elevated BP felt to be situational Consults Time Called: 1831 Consulting Physician: Dr. Joshi [facility] Returned Call: [address] Joshi, [facility]. We discussed the patients case. The patient will be evaluated by the [facility] for further management. Impression Primary Impression: Diverticulitis of colon with perforation Scribe Attestation The scribe's documentation has been prepared under my direct and personally reviewed by me in its entirety. I confirm that the note above accurately reflects all work, treatment, procedures, and medical decision making performed by me. Departure Information Dispostion Being Evaluated By Hospitalist Referrals No Doctor, Assigned (PCP) Patient Instructions [facility] Problem Qualifiers Primary Impression: Diverticulitis of colon with perforation Diverticulitis bleeding: unspecified bleeding status Qualified Codes: K57.20 - Diverticulitis of large intestine with perforation and abscess without bleeding
[2017-03-10 23:28] VITALS: O2SAT 97
[2017-03-10] MEDS: HYDROmorphone INJ 2 MG/ML SYR/VIAL IV PRN (23:37)
[2017-03-11] MEDS: HYDROmorphone INJ 2 MG/ML SYR/VIAL IV PRN ×3 (04:31→17:57)
[2017-03-11 07:23] LABS: HEMATOCRIT 35.1 % (37-47); HEMOGLOBIN 11.7 g/dL (12.0-16.0); MEAN CELL VOLUME 91.2 fL (80-100); MEAN CORPUSCULAR HEMOGLOBIN 30.4 pg (25-34); MEAN CORPUSCULAR HGB CONC 33.3 g/dl (32-36); MEAN PLATELET VOLUME 10.4 fL (7.4-10.4); PLATELET COUNT 205 K/uL (130-400); RED CELL DISTRIBUTION WIDTH CV 12.7 % (11.5-14.5); RED CELL DISTRIBUTION WIDTH SD 42.5 fL (36.4-46.3); WHITE BLOOD COUNT 10.94 K/uL (4.8-10.8)
[2017-03-11 07:32] VITALS: BP 103/66; PULSE 80; TEMP 36.5; O2SAT 98
[2017-03-11] MEDS: PIPERACILL/TAZOBAC IV 3.375 GM in DEXTROSE 5% 100ML 100 ML IV SCH ×5 (07:37→23:59)
[2017-03-11 07:53] LABS: ALBUMIN 3.1 gm/dl (3.4-5.0); CALCIUM 8.9 mg/dl (8.5-10.1); CREATININE 0.94 mg/dl (0.60-1.20); POTASSIUM 3.3 mmol/L (3.5-5.1)
[2017-03-11 07:57] LABS: TOTAL PROTEIN 6.9 gm/dl (6.4-8.2)
--- NOTE | 2017-03-11 09:07 | Surgery Consultation ---
Consultation Date of Consultation: Mar 11, 2017. Attending Physician: Pj Aldana M.D. Reason for Consultation: Diverticulitis with microperforation History of Present Illness 47 yo F with history of prior Diverticulitis x2 approx 11 yrs back , presents to ED with complain of severe intractable Left lower quadrant pain , associated with low grade fever , one episode of diarrhea and nausea that began yesterday. States she had an episode of diarrhea on Saturday. Normal bowel movement 2 days ago. States she was diagnosed with diverticulosis about 11 years ago. In the emergency room she had elevated wbc count at 16K and CT scan of abdomen and pelvis showing pericolonic fat stranding at the distal descending colon with moderate bowel wall thickening and inflamed diverticulum. Findings consistent with acute diverticulitis. Small cluster of gas bubbles posterior to thickened colon which could represent focal microperforation. No evidence of abscess formation. She had a colonoscopy done by Dr Lizama after Ist episode -was told chronic diverticulosis, no polyp or sign of inflammation noted. She states she is feeling much better today compared to yesterday. Has been ambulating without difficulty. Just received pain medication so pain is minimal at this time. Past Medical/Surgical History Medical Problems: (1) Back strain Status: Acute (2) Diverticulitis of colon with perforation Status: Acute Family History No pertinent family history Social History Smoking Status: Former Smoker Smokeless Tobacco Use: No Drug Use: none Marital Status: Housing Status: lives with family Occupation Status: employed Allergies Coded Allergies: No Known Allergies (Unverified , 01/24/17) Home Medications Scheduled PRN Hydrocodone/Acetaminophen 10MG/325MG ([place] 10MG/325MG), 1-2 TABS PO Q6H PRN for Pain Lorazepam (Ativan), 1 MG PO Q6H PRN for Anxiety Current Inpatient Medications Current Inpatient Medications Medications (Trade) Dose Ordered Sig/Jez Route Start Time Stop Time Status Last Admin Dose Admin Ondansetron HCl (Zofran Inj) 4 mg Q6H PRN IV 03/10/17 19:00 04/09/17 18:59 Piperacillin Sod/ Tazobactam Sod 3.375 gm/Dextrose 115 ml @ 28.75 mls/ hr Q8H IV 03/11/17 00:00 03/21/17 00:00 03/11/17 07:37 28.75 MLS/HR Miscellaneous Information (Consult) 1 ea UD PRN N/A 03/10/17 19:15 04/09/17 19:14 Sodium Chloride 1,000 ml @ 125 mls/hr Q8H IV 03/10/17 20:00 04/09/17 19:59 03/10/17 20:03 100 MLS/HR Pantoprazole Sodium 40 mg/ Syringe 10 ml @ 5 mls/min DAILY@11 IV 03/11/17 11:00 04/10/17 10:59 Lorazepam 0.5 mg/ Syringe 1 ml @ 1 mls/min Q6 PRN IV 03/10/17 20:00 04/09/17 19:59 Hydromorphone HCl (Dilaudid Inj) 2 mg Q3HWA PRN IV 03/10/17 20:15 03/24/17 20:14 Hydromorphone HCl (Dilaudid Inj) 4 mg Q3HWA PRN IV 03/10/17 20:15 03/24/17 20:14 03/11/17 07:37 4 MG Review of Systems Constitutional: + fever (low grade fever of 99.5), No chills, No sweats Respiratory: No shortness of breath Abdomen: + pain, + nausea, + diarrhea, No vomiting, No constipation, No GI bleeding Physical Exam Date Time Temp Pulse Resp B/P (MAP) Pulse Ox O2 Delivery O2 Flow Rate FiO2 03/11/17 07:32 36.5 80 18 103/66 (78) 98 Room Air 03/11/17 07:20 Room Air 03/10/17 23:28 97 Room Air 03/10/17 23:13 37.0 72 14 105/66 (79) 97 Room Air 03/10/17 19:40 36.9 67 16 111/72 98 Room Air 03/10/17 19:25 37.1 85 20 119/95 99 03/10/17 19:10 85 20 119/95 99 Room Air 03/10/17 18:26 83 03/10/17 18:23 82 20 119/95 94 Room Air 03/10/17 17:04 37.1 117 18 126/86 99 Room Air General Appearance: WD/WN, no apparent distress Head: normocephalic, atraumatic Eyes: sclerae normal ENT: hearing grossly normal Neck: trachea midline Respiratory/Chest: lungs clear, normal breath sounds, no respiratory distress, no accessory muscle use Cardiovascular: regular rate, rhythm, no murmur Abdomen/GI: soft, no organomegaly, no pulsatile mass, + tenderness (mild tenderness in the LLQ, no guarding, rebound, or peritonitis) Back: normal inspection Neurologic/Psych: alert, normal mood/affect, oriented x 3 Skin: normal color, warm/dry, no rash Laboratory Results Last 24 Hours Test 03/10/17 17:30 03/10/17 20:42 03/11/17 06:26 White Blood Count 16.21 K/uL 10.94 K/uL Red Blood Count 4.62 M/uL 3.85 M/uL Hemoglobin 14.0 g/dL 11.7 g/dL Hematocrit 41.4 % 35.1 % Mean Corpuscular Volume 89.6 fL 91.2 fL Mean Corpuscular Hemoglobin 30.3 pg 30.4 pg Mean Corpuscular Hemoglobin Concent 33.8 g/dl 33.3 g/dl Platelet Count 241 K/uL 205 K/uL Mean Platelet Volume 10.4 fL 10.4 fL Neutrophils (%) (Auto) 81.7 % Lymphocytes (%) (Auto) 9.6 % Monocytes (%) (Auto) 8.3 % Eosinophils (%) (Auto) 0.0 % Basophils (%) (Auto) 0.1 % Neutrophils # (Auto) 13.24 K/uL Lymphocytes # (Auto) 1.55 K/uL Monocytes # (Auto) 1.35 K/uL Eosinophils # (Auto) 0.00 K/uL Basophils # (Auto) 0.02 K/uL RDW Standard Deviation 41.2 fL 42.5 fL RDW Coefficient of Variation 12.7 % 12.7 % Immature Granulocyte % (Auto) 0.3 % Immature Granulocyte # (Auto) 0.05 K/uL Sodium Level 137 mmol/L 139 mmol/L Potassium Level 3.9 mmol/L 3.3 mmol/L Chloride Level 103 mmol/L 104 mmol/L Carbon Dioxide Level 24 mmol/L 24 mmol/L Anion Gap 10.0 mmol/L 12.0 mmol/L Blood Urea Nitrogen 6 mg/dl 7 mg/dl Creatinine 0.97 mg/dl 0.94 mg/dl Est Creatinine Clear Calc Drug Dose 61.3 ml/min 63.2 ml/min Estimated GFR () 80.0 83.1 Estimated GFR (Non- 69.1 71.7 BUN/Creatinine Ratio 6.3 7.9 Random Glucose 104 mg/dl 87 mg/dl Calcium Level 9.8 mg/dl 8.9 mg/dl Total Bilirubin 0.8 mg/dl 0.6 mg/dl Direct Bilirubin 0.2 mg/dl 0.2 mg/dl Aspartate Amino Transf (AST/SGOT) 11 U/L 10 U/L Alanine Aminotransferase (ALT/SGPT) 9 U/L 9 U/L Alkaline Phosphatase 142 U/L 107 U/L Total Protein 8.5 gm/dl 6.9 gm/dl Albumin 3.7 gm/dl 3.1 gm/dl Lipase 164 U/L Lactic Acid Level 0.7 mmol/L Procalcitonin < 0.05 ng/ml Magnesium Level 2.2 mg/dl Assessment & Plan Acute diverticulitis with questionable Microperforation -vitals stable -leukocytosis improved - abdomen soft, nondistended, mild tenderness in LLQ Plan: No acute surgical intervention required at this time. Would recommend to continue conservative treatment: IV fluids, IV antibiotics, IV pain medication, IV Zofran, and NPO. Monitor electrolytes and replace as needed Encourage ambulation Continue medical management May start clear liquids tomorrow if abdominal pain continues to improve. Will follow Will need outpatient colonoscopy in 4-[address] Pearson has seen and examined patient, agrees with above
[2017-03-11] MEDS: PANTOprazole INJ 40 MG in SYRINGE 0 ML IV SCH (10:33)
[2017-03-11] MEDS: SODIUM CHLORIDE 0.9% 1000ML 1,000 ML IV SCH ×3 (10:43→21:02)
[2017-03-11] MEDS ORDERED: ACETAMINOPHEN 325 MG TAB PO PRN (11:30)
--- NOTE | 2017-03-11 12:12 | Gastrointestinal Consultation ---
Gastrointestinal Consultation Date of Consultation: Mar 11, 2017 Attending Physician: Pj Aldana Consulting Physician: Donita Ferrell Reason for Consultation: Diverticulitis History of Present Illness Patient is a 47 year old female who presented to ED w/o L sided abd pain associated w low grade fever (99), chills, nausea w/o vomiting and loose stoolw w/o blood. CT abd/pelvis showed pericolonic fat stranding w moderate bowel wall thickening and inflamed diverticulum ? small gall bubble around the diverticulitis area may represent focal perforation. No abscess noted. She has hx of diverticulitis (2 episodes in last 11 yrs), one flare up within last year which she managed at home w conservative care. She had a colonoscopy last by Dr. Lizama 11 yrs ago w findings of chronic diverticulosis w/o polyps. Past Medical/Surgical History Medical Problems: (1) Back strain Status: Acute (2) Diverticulitis of colon with perforation Status: Acute Past Medical History: Past Medical/Surgical History Medical Problems: (1) Diverticulitis of colon Permanent Comment: Hospitalized twice at [facility]. Status: Resolved (2) Ileitis Status: Resolved (3) Spondylolisthesis, lumbar region Status: Resolved Surgical Problems: (1) Hx of lumbar discectomy Status: Resolved Family History No pertinent family history Social History Smoking Status: Former Smoker Alcohol Use: occasionally Drug Use: none Marital Status: Housing Status: lives with family Occupation Status: employed Allergies Coded Allergies: No Known Allergies (Unverified , 01/24/17) Current Medications Home Meds and Scripts Medications Dose Route/Sig Max Daily Dose Days Date Category Ativan (Lorazepam) 1 Mg Tab 1 Mg PO Q6H PRN 03/10/17 Reported [place] 10MG/325MG (Acetaminophen/Hydrocodone Bitart) Tab 1-2 Tabs PO Q6H PRN 01/08/17 Reported Review of Systems Constitutional: No fever, No chills Respiratory: No cough, No shortness of breath Cardiac: No chest pain Abdomen: + pain (along L side ), No nausea, No vomiting Physical Exam Date Time Temp Pulse Resp B/P (MAP) Pulse Ox O2 Delivery O2 Flow Rate FiO2 03/11/17 07:32 36.5 80 18 103/66 (78) 98 Room Air 03/11/17 07:20 Room Air 03/10/17 23:28 97 Room Air 03/10/17 23:13 37.0 72 14 105/66 (79) 97 Room Air 03/10/17 19:40 36.9 67 16 111/72 98 Room Air 03/10/17 19:25 37.1 85 20 119/95 99 03/10/17 19:10 85 20 119/95 99 Room Air 03/10/17 18:26 83 03/10/17 18:23 82 20 119/95 94 Room Air 03/10/17 17:04 37.1 117 18 126/86 99 Room Air General Appearance: WD/WN, no apparent distress Eyes: normal inspection, PERRL, EOMI Neck: supple, no JVD, trachea midline Respiratory/Chest: normal breath sounds, no respiratory distress, no accessory muscle use Cardiovascular: regular rate, rhythm, no gallop, no murmur Abdomen: normal bowel sounds, soft, + tenderness (Along L side ) Extremities: normal inspection, no pedal edema, no calf tenderness Neurologic/Psych: alert, normal mood/affect, oriented x 3 Skin: normal color, no jaundice, no rash Laboratory Results Last 24 Hours Test 03/10/17 17:30 03/10/17 20:42 03/11/17 06:26 White Blood Count 16.21 K/uL 10.94 K/uL Red Blood Count 4.62 M/uL 3.85 M/uL Hemoglobin 14.0 g/dL 11.7 g/dL Hematocrit 41.4 % 35.1 % Mean Corpuscular Volume 89.6 fL 91.2 fL Mean Corpuscular Hemoglobin 30.3 pg 30.4 pg Mean Corpuscular Hemoglobin Concent 33.8 g/dl 33.3 g/dl Platelet Count 241 K/uL 205 K/uL Mean Platelet Volume 10.4 fL 10.4 fL Neutrophils (%) (Auto) 81.7 % Lymphocytes (%) (Auto) 9.6 % Monocytes (%) (Auto) 8.3 % Eosinophils (%) (Auto) 0.0 % Basophils (%) (Auto) 0.1 % Neutrophils # (Auto) 13.24 K/uL Lymphocytes # (Auto) 1.55 K/uL Monocytes # (Auto) 1.35 K/uL Eosinophils # (Auto) 0.00 K/uL Basophils # (Auto) 0.02 K/uL RDW Standard Deviation 41.2 fL 42.5 fL RDW Coefficient of Variation 12.7 % 12.7 % Immature Granulocyte % (Auto) 0.3 % Immature Granulocyte # (Auto) 0.05 K/uL Sodium Level 137 mmol/L 139 mmol/L Potassium Level 3.9 mmol/L 3.3 mmol/L Chloride Level 103 mmol/L 104 mmol/L Carbon Dioxide Level 24 mmol/L 24 mmol/L Anion Gap 10.0 mmol/L 12.0 mmol/L Blood Urea Nitrogen 6 mg/dl 7 mg/dl Creatinine 0.97 mg/dl 0.94 mg/dl Est Creatinine Clear Calc Drug Dose 61.3 ml/min 63.2 ml/min Estimated GFR () 80.0 83.1 Estimated GFR (Non- 69.1 71.7 BUN/Creatinine Ratio 6.3 7.9 Random Glucose 104 mg/dl 87 mg/dl Calcium Level 9.8 mg/dl 8.9 mg/dl Total Bilirubin 0.8 mg/dl 0.6 mg/dl Direct Bilirubin 0.2 mg/dl 0.2 mg/dl Aspartate Amino Transf (AST/SGOT) 11 U/L 10 U/L Alanine Aminotransferase (ALT/SGPT) 9 U/L 9 U/L Alkaline Phosphatase 142 U/L 107 U/L Total Protein 8.5 gm/dl 6.9 gm/dl Albumin 3.7 gm/dl 3.1 gm/dl Lipase 164 U/L Lactic Acid Level 0.7 mmol/L Procalcitonin < 0.05 ng/ml Magnesium Level 2.2 mg/dl Impression Patient is a 47 year old female with acute diverticulitis on descending colon area. Plan - Continue Zosyn - Surgery consulted for possible micro perforation; diet advancement per Surgery team but if no contraindication, may start CL diet - Symptomatic management - Plan for repeat CT scan before discharge to assess microperforation resolution and then plan for outpt colonoscopy in 6-8 week's time. I have seen and exmined the patient with BRANDI Saenz whose ntoe reflects our findings and plan.
[2017-03-11] MEDS ORDERED: POTASSIUM CHLORIDE 20 MEQ TABCR PO ONE (12:45)
[2017-03-11 15:04] VITALS: BP 113/76; PULSE 75; TEMP 36.5; O2SAT 99
[2017-03-11] MEDS: ONDANSETRON INJ 2 MG/ML 2 ML VIAL IV PRN ×2 (15:32→23:59)
--- NOTE | 2017-03-11 17:53 | Progress Note ---
Internal Med Progress Note Date of Service: Mar 11, 2017. Provider Documentation: SUBJECTIVE: No acute distress. Patient reporting abdominal pain of left side. Denies vomiting or fever OBJECTIVE: Exam: General- no acute distres Eyes- EOMI Neck- midline trachea, no JVD Lungs- CTABL, no wheezing Heart- regular rate Abdomen- positive bowel sounds, some tenderness on palpation of left abdomen Extremities- no edema Neuro- no focal neurological deficits ASSESSMENT & PLAN: presents with acute abdominal pain localized to Left lower quadrant will Leukocytosis , low grade fever , Nausea /diarrhea ACUTE COLONIC DIVERTICULITIS WITH MICROPERFORATION : CT abdomen /pelvis : acute descending colon diverticulitis with micro perforation continue IV Zosyn, IV fluid resuscitation; Pain control Surgery consult: No acute surgical intervention required at this time GI eval: Plan for repeat CT scan before discharge to assess microperforation resolution and then plan for outpt colonoscopy in 6-8 week's time bowel rest, May start clear liquids tomorrow if abdominal pain continues to improve. LEUKOCYTOSIS : downtrending, continue empiric Abx with IV Zosyn pending Stool for C diff /stool culture collection ANXIETY DISORDER : PRN IV Ativan ordered for anxiety FULL CODE DVT PROPHYLAXIS : SCD and Teds Ambulate DISPOSITION : Plan for repeat CT scan before discharge to assess microperforation resolution and then plan for outpt colonoscopy in 6-8 week's time expected to be discharged home when medically stable Medicine follow up with Dr Mejia Vital Signs: Date Time Temp Pulse Resp B/P (MAP) Pulse Ox O2 Delivery O2 Flow Rate FiO2 03/11/17 15:04 36.5 75 18 113/76 (88) 99 Room Air 03/11/17 07:32 36.5 80 18 103/66 (78) 98 Room Air 03/11/17 07:20 Room Air 03/10/17 23:28 97 Room Air 03/10/17 23:13 37.0 72 14 105/66 (79) 97 Room Air 03/10/17 19:40 36.9 67 16 111/72 98 Room Air Lab Results: Results Past 24 Hours Test 03/10/17 20:42 03/11/17 06:26 03/11/17 12:30 Range/Units Lactic Acid Level 0.7 0.4-2.0 mmol/L Procalcitonin < 0.05 0-0.5 ng/ml White Blood Count 10.94 4.8-10.8 K/uL Red Blood Count 3.85 4.2-5.4 M/uL Hemoglobin 11.7 12.0-16.0 g/dL Hematocrit 35.1 37-47 % Mean Corpuscular Volume 91.2 80-100 fL Mean Corpuscular Hemoglobin 30.4 25-34 pg Mean Corpuscular Hemoglobin Concent 33.3 32-36 g/dl RDW Standard Deviation 42.5 36.4-46.3 fL RDW Coefficient of Variation 12.7 11.5-14.5 % Platelet Count 205 130-400 K/uL Mean Platelet Volume 10.4 7.4-10.4 fL Sodium Level 139 136-145 mmol/L Potassium Level 3.3 3.5-5.1 mmol/L Chloride Level 104 98-107 mmol/L Carbon Dioxide Level 24 21-32 mmol/L Anion Gap 12.0 3-11 mmol/L Blood Urea Nitrogen 7 7-18 mg/dl Creatinine 0.94 0.60-1.20 mg/dl Est Creatinine Clear Calc Drug Dose 63.2 ml/min Estimated GFR () 83.1 Estimated GFR (Non- 71.7 BUN/Creatinine Ratio 7.9 10-20 Random Glucose 87 70-99 mg/dl Calcium Level 8.9 8.5-10.1 mg/dl Magnesium Level 2.2 1.8-2.4 mg/dl Total Bilirubin 0.6 0.2-1 mg/dl Direct Bilirubin 0.2 0-0.2 mg/dl Aspartate Amino Transf (AST/SGOT) 10 15-37 U/L Alanine Aminotransferase (ALT/SGPT) 9 12-78 U/L Alkaline Phosphatase 107 45-117 U/L Total Protein 6.9 6.4-8.2 gm/dl Albumin 3.1 3.4-5.0 gm/dl Urine Color DK YELLOW Urine Appearance CLEAR CLEAR Urine pH 5.0 4.5-7.5 Urine Specific [place] 1.035 1.000-1.030 Urine Protein TRACE NEG Urine Glucose (UA) NEG NEG Urine Ketones 2+ NEG Urine Occult Blood NEG NEG Urine Nitrite NEG NEG Urine Bilirubin NEG NEG Urine Urobilinogen NEG NEG Urine Leukocyte Esterase NEG NEG Urine WBC (Auto) 1-5 0-5 /hpf Urine RBC (Auto) 0-4 0-4 /hpf Urine Hyaline Casts (Auto) 1-5 0-5 /lpf Urine Epithelial Cells (Auto) 20-30 0-5 /lpf Urine Bacteria (Auto) NEG NEG Urine Test NEG NEG
[2017-03-11 22:56] VITALS: BP 97/64; PULSE 72; TEMP 36.6; O2SAT 100
[2017-03-11 23:50] VITALS: O2SAT 100
[2017-03-12 05:55] LABS: HEMATOCRIT 32.4 % (37-47); HEMOGLOBIN 10.8 g/dL (12.0-16.0); MEAN CELL VOLUME 91.5 fL (80-100); MEAN CORPUSCULAR HEMOGLOBIN 30.5 pg (25-34); MEAN CORPUSCULAR HGB CONC 33.3 g/dl (32-36); MEAN PLATELET VOLUME 10.3 fL (7.4-10.4); PLATELET COUNT 201 K/uL (130-400); RED CELL DISTRIBUTION WIDTH CV 12.4 % (11.5-14.5); RED CELL DISTRIBUTION WIDTH SD 42.1 fL (36.4-46.3); WHITE BLOOD COUNT 8.74 K/uL (4.8-10.8)
[2017-03-12] MEDS: HYDROmorphone INJ 2 MG/ML SYR/VIAL IV PRN ×3 (06:38→19:36)
[2017-03-12 06:44] LABS: ALBUMIN 2.6 gm/dl (3.4-5.0); CALCIUM 8.2 mg/dl (8.5-10.1); CREATININE 0.85 mg/dl (0.60-1.20); POTASSIUM 4.3 mmol/L (3.5-5.1); TOTAL PROTEIN 6.3 gm/dl (6.4-8.2)
[2017-03-12] MEDS ORDERED: DEXTROSE 50% 50 ML SYR IV ONE (07:00)
[2017-03-12] MEDS ORDERED: DEXTROSE 50% 50 ML SYR ONE (07:26)
[2017-03-12] MEDS: D5W AND NSS 1,000 ML IV SCH ×2 (07:32→18:15)
[2017-03-12] MEDS: PIPERACILL/TAZOBAC IV 3.375 GM in DEXTROSE 5% 100ML 100 ML IV SCH ×3 (07:33→23:20)
[2017-03-12 07:56] VITALS: BP 104/66; PULSE 70; TEMP 36.7; O2SAT 97
[2017-03-12] MEDS: DOCUSATE SODIUM 100 MG CAP PO SCH (10:27)
[2017-03-12] MEDS: PANTOprazole INJ 40 MG in SYRINGE 0 ML IV SCH (10:27)
--- NOTE | 2017-03-12 10:41 | Gastroenterology Progress Note ---
Progress Note Date of Service: Mar 12, 2017 Subjective Pt evaluation today including: conversation w/ patient, physical exam, chart review, lab review, review of inpatient medication list Pt is having less abd pain, tolerating CL diet w/o n/v. No fever, chills. Review of Systems Constitutional: No fever, No chills Respiratory: No cough, No shortness of breath Abdomen: + pain (improved), No nausea, No vomiting Medications Current Inpatient Medications Medications (Trade) Dose Ordered Sig/Jez Route Start Time Stop Time Status Last Admin Dose Admin Ondansetron HCl (Zofran Inj) 4 mg Q6H PRN IV 03/10/17 19:00 04/09/17 18:59 03/11/17 23:59 4 MG Piperacillin Sod/ Tazobactam Sod 3.375 gm/Dextrose 115 ml @ 28.75 mls/ hr Q8H IV 03/11/17 00:00 03/21/17 00:00 03/12/17 07:33 28.75 MLS/HR Miscellaneous Information (Consult) 1 ea UD PRN N/A 03/10/17 19:15 04/09/17 19:14 Pantoprazole Sodium 40 mg/ Syringe 10 ml @ 5 mls/min DAILY@11 IV 03/11/17 11:00 04/10/17 10:59 03/12/17 10:27 5 MLS/MIN Lorazepam 0.5 mg/ Syringe 1 ml @ 1 mls/min Q6 PRN IV 03/10/17 20:00 04/09/17 19:59 Hydromorphone HCl (Dilaudid Inj) 2 mg Q6 PRN IV 03/11/17 11:30 03/25/17 11:29 03/12/17 06:38 2 MG Acetaminophen (Tylenol Tab) 650 mg Q4H PRN PO 03/11/17 11:30 04/10/17 11:29 03/11/17 15:32 650 MG Dextrose/Sodium Chloride 1,000 ml @ 100 mls/hr Q10H IV 03/12/17 07:00 04/11/17 06:59 03/12/17 07:32 100 MLS/HR Docusate Sodium (coLACE CAP) 100 mg DAILY PO 03/12/17 09:15 04/11/17 09:14 03/12/17 10:27 100 MG Acetaminophen/ Hydrocodone Bitart ([place] 10/325 Tab) 1 tab Q6H PRN PO 03/12/17 10:45 03/26/17 10:44 UNV Lorazepam (Ativan Tab) 1 mg Q6H PRN PO 03/12/17 10:45 04/11/17 10:44 UNV Objective Vital Signs Date Time Temp Pulse Resp B/P (MAP) Pulse Ox O2 Delivery O2 Flow Rate FiO2 03/12/17 07:56 36.7 70 16 104/66 (79) 97 03/12/17 07:30 Room Air 03/11/17 23:50 100 Room Air 03/11/17 22:56 36.6 72 18 97/64 (75) 100 Room Air 03/11/17 15:35 Room Air 03/11/17 15:04 36.5 75 18 113/76 (88) 99 Room Air Physical Exam General Appearance: WD/WN, no apparent distress Eyes: normal inspection, PERRL, EOMI Neck: supple, no JVD, trachea midline Respiratory/Chest: normal breath sounds, no respiratory distress, no accessory muscle use Cardiovascular: regular rate, rhythm, no gallop, no murmur Abdomen: normal bowel sounds, soft, + tenderness (along L abd side, but better than yesterday) Extremities: normal inspection, no pedal edema, no calf tenderness Neurologic/Psych: alert, normal mood/affect, oriented x 3 Skin: normal color, no jaundice, no rash Laboratory Results Last 24 Hours Test 03/11/17 12:30 03/12/17 05:30 Urine Color DK YELLOW Urine Appearance CLEAR Urine pH 5.0 Urine Specific [place] 1.035 Urine Protein TRACE Urine Glucose (UA) NEG Urine Ketones 2+ Urine Occult Blood NEG Urine Nitrite NEG Urine Bilirubin NEG Urine Urobilinogen NEG Urine Leukocyte Esterase NEG Urine WBC (Auto) 1-5 /hpf Urine RBC (Auto) 0-4 /hpf Urine Hyaline Casts (Auto) 1-5 /lpf Urine Epithelial Cells (Auto) 20-30 /lpf Urine Bacteria (Auto) NEG Urine Test NEG White Blood Count 8.74 K/uL Red Blood Count 3.54 M/uL Hemoglobin 10.8 g/dL Hematocrit 32.4 % Mean Corpuscular Volume 91.5 fL Mean Corpuscular Hemoglobin 30.5 pg Mean Corpuscular Hemoglobin Concent 33.3 g/dl RDW Standard Deviation 42.1 fL RDW Coefficient of Variation 12.4 % Platelet Count 201 K/uL Mean Platelet Volume 10.3 fL Sodium Level 136 mmol/L Potassium Level 4.3 mmol/L Chloride Level 107 mmol/L Carbon Dioxide Level 20 mmol/L Anion Gap 9.0 mmol/L Blood Urea Nitrogen 9 mg/dl Creatinine 0.85 mg/dl Est Creatinine Clear Calc Drug Dose 69.9 ml/min Estimated GFR () 93.9 Estimated GFR (Non- 81.0 BUN/Creatinine Ratio 10.4 Random Glucose 51 mg/dl Calcium Level 8.2 mg/dl Magnesium Level 2.0 mg/dl Total Bilirubin 0.5 mg/dl Direct Bilirubin 0.1 mg/dl Aspartate Amino Transf (AST/SGOT) 8 U/L Alanine Aminotransferase (ALT/SGPT) 6 U/L Alkaline Phosphatase 96 U/L Total Protein 6.3 gm/dl Albumin 2.6 gm/dl Assessment and Plan Patient is a 47 year old female with acute diverticulitis on descending colon area. Abd pain is improved, tolerating CL diet w/o increased abd pain, n/v. Plans - Continue Zosyn IV; upon DC may convert to PO Cipro/Flagyl to complete 14 days total. - Ok to advance diet slowly as tolerated. - Symptomatic management - Plan for repeat CT scan before discharge to assess microperforation resolution and then plan for outpt colonoscopy in 6-8 week's time. - Will sign off, call if new questions/concerns arise
[2017-03-12] MEDS ORDERED: LORAZEPAM 1 MG TAB PO PRN (10:45)
--- NOTE | 2017-03-12 13:36 | Surgery Progress Note ---
Surgery Progress Note Date of Service Mar 12, 2017. Subjective Post OP Day: HD # 2 "having more back pain then left lower abdominal pain" No nausea or vomiting no flatus or bm ambulating Pain controlled Objective Vital Signs: Date Time Temp Pulse Resp B/P (MAP) Pulse Ox O2 Delivery O2 Flow Rate FiO2 03/12/17 07:56 36.7 70 16 104/66 (79) 97 03/12/17 07:30 Room Air 03/11/17 23:50 100 Room Air 03/11/17 22:56 36.6 72 18 97/64 (75) 100 Room Air 03/11/17 15:35 Room Air 03/11/17 15:04 36.5 75 18 113/76 (88) 99 Room Air General Appearance: WD/WN, no apparent distress Head: normocephalic, atraumatic Neck: trachea midline Respiratory/Chest: no respiratory distress, no accessory muscle use Abdomen: non distended, soft, no organomegaly, + tenderness (in left lower quadrant, no guarding, rigidity, or peritonitis) Laboratory Results: Results Past 24 Hours Test 03/12/17 05:30 Range/Units White Blood Count 8.74 4.8-10.8 K/uL Red Blood Count 3.54 4.2-5.4 M/uL Hemoglobin 10.8 12.0-16.0 g/dL Hematocrit 32.4 37-47 % Mean Corpuscular Volume 91.5 80-100 fL Mean Corpuscular Hemoglobin 30.5 25-34 pg Mean Corpuscular Hemoglobin Concent 33.3 32-36 g/dl RDW Standard Deviation 42.1 36.4-46.3 fL RDW Coefficient of Variation 12.4 11.5-14.5 % Platelet Count 201 130-400 K/uL Mean Platelet Volume 10.3 7.4-10.4 fL Sodium Level 136 136-145 mmol/L Potassium Level 4.3 3.5-5.1 mmol/L Chloride Level 107 98-107 mmol/L Carbon Dioxide Level 20 21-32 mmol/L Anion Gap 9.0 3-11 mmol/L Blood Urea Nitrogen 9 7-18 mg/dl Creatinine 0.85 0.60-1.20 mg/dl Est Creatinine Clear Calc Drug Dose 69.9 ml/min Estimated GFR () 93.9 Estimated GFR (Non- 81.0 BUN/Creatinine Ratio 10.4 10-20 Random Glucose 51 70-99 mg/dl Calcium Level 8.2 8.5-10.1 mg/dl Magnesium Level 2.0 1.8-2.4 mg/dl Total Bilirubin 0.5 0.2-1 mg/dl Direct Bilirubin 0.1 0-0.2 mg/dl Aspartate Amino Transf (AST/SGOT) 8 15-37 U/L Alanine Aminotransferase (ALT/SGPT) 6 12-78 U/L Alkaline Phosphatase 96 45-117 U/L Total Protein 6.3 6.4-8.2 gm/dl Albumin 2.6 3.4-5.0 gm/dl Assessment & Plan Acute Diverticulitis with microperforation? -vitals stable, afebrile, leukocytosis resolved - pain in LLQ improved, minimal - + back pain (history of back surgery) - no return of bowel function yet Plan: May advance diet to clear liquids and then slowly as tolerated Continue IV Zosyn, switch to PO Cipro/Flagyl on discharge GI recommending repeat CT scan prior to discharge and will need outpatient follow up and colonoscopy in 6-8 weeks Continue medical management Encouraged ambulation Dr. Pearson has seen and examined patient, agrees with above
[2017-03-12 15:10] VITALS: BP 118/81; PULSE 73; TEMP 36.5; O2SAT 96
[2017-03-12] MEDS: HYDROCODONE/ACETAMI 10/325 TAB PO PRN (16:03)
--- NOTE | 2017-03-12 16:30 | Progress Note ---
Internal Med Progress Note Date of Service: Mar 12, 2017. Provider Documentation: SUBJECTIVE: resting comfortably says abdominal pain much improved tolerating clears no nausea no fevers OBJECTIVE: Vital Signs-as noted below Exam: General-alert and oriented. Not in distress ENT-Normal hearing Neck-no neck masses Lungs-cta b/l no wheezing or crackles Heart-S1 and S2 heard regular rate and rhythm, no murmurs Abdomen-soft bowel sounds present mild LLQ tenderness no distension Extremities-no edema no erythema Neuro-alert and awake moves extremities Lab data as noted below. ASSESSMENT & PLAN: 47 F presents with acute abdominal pain localized to Left lower quadrant will Leukocytosis , low grade fever , Nausea /diarrhea ACUTE COLONIC DIVERTICULITIS WITH MICROPERFORATION : on iv Zosyn tolerating clears iv pain med and iv antiemetics prn improving continue same for now. ANXIETY DISORDER : PRN IV Ativan ordered for anxiety FULL CODE DVT PROPHYLAXIS : SCD and Teds Ambulate DISPOSITION possible d/c in couple of days Vital Signs: Date Time Temp Pulse Resp B/P (MAP) Pulse Ox O2 Delivery O2 Flow Rate FiO2 03/12/17 15:10 36.5 73 16 118/81 (93) 96 Room Air 03/12/17 07:56 36.7 70 16 104/66 (79) 97 03/12/17 07:30 Room Air 03/11/17 23:50 100 Room Air 03/11/17 22:56 36.6 72 18 97/64 (75) 100 Room Air Lab Results: Results Past 24 Hours Test 03/12/17 05:30 Range/Units White Blood Count 8.74 4.8-10.8 K/uL Red Blood Count 3.54 4.2-5.4 M/uL Hemoglobin 10.8 12.0-16.0 g/dL Hematocrit 32.4 37-47 % Mean Corpuscular Volume 91.5 80-100 fL Mean Corpuscular Hemoglobin 30.5 25-34 pg Mean Corpuscular Hemoglobin Concent 33.3 32-36 g/dl RDW Standard Deviation 42.1 36.4-46.3 fL RDW Coefficient of Variation 12.4 11.5-14.5 % Platelet Count 201 130-400 K/uL Mean Platelet Volume 10.3 7.4-10.4 fL Sodium Level 136 136-145 mmol/L Potassium Level 4.3 3.5-5.1 mmol/L Chloride Level 107 98-107 mmol/L Carbon Dioxide Level 20 21-32 mmol/L Anion Gap 9.0 3-11 mmol/L Blood Urea Nitrogen 9 7-18 mg/dl Creatinine 0.85 0.60-1.20 mg/dl Est Creatinine Clear Calc Drug Dose 69.9 ml/min Estimated GFR () 93.9 Estimated GFR (Non- 81.0 BUN/Creatinine Ratio 10.4 10-20 Random Glucose 51 70-99 mg/dl Calcium Level 8.2 8.5-10.1 mg/dl Magnesium Level 2.0 1.8-2.4 mg/dl Total Bilirubin 0.5 0.2-1 mg/dl Direct Bilirubin 0.1 0-0.2 mg/dl Aspartate Amino Transf (AST/SGOT) 8 15-37 U/L Alanine Aminotransferase (ALT/SGPT) 6 12-78 U/L Alkaline Phosphatase 96 45-117 U/L Total Protein 6.3 6.4-8.2 gm/dl Albumin 2.6 3.4-5.0 gm/dl
[2017-03-12 23:15] VITALS: BP 116/68; PULSE 73; TEMP 36.8; O2SAT 99
[2017-03-13] MEDS ORDERED: NURSING VERBAL MED ORDER ONE (03:15)
[2017-03-13] MEDS: D5W AND NSS 1,000 ML IV SCH (05:26)
[2017-03-13] MEDS: HYDROmorphone INJ 2 MG/ML SYR/VIAL IV PRN ×2 (05:40→15:26)
[2017-03-13 07:23] LABS: HEMATOCRIT 33.1 % (37-47); HEMOGLOBIN 11.1 g/dL (12.0-16.0); MEAN CELL VOLUME 90.4 fL (80-100); MEAN CORPUSCULAR HEMOGLOBIN 30.3 pg (25-34); MEAN CORPUSCULAR HGB CONC 33.5 g/dl (32-36); PLATELET COUNT 213 K/uL (130-400); RED CELL DISTRIBUTION WIDTH CV 12.5 % (11.5-14.5); RED CELL DISTRIBUTION WIDTH SD 41.4 fL (36.4-46.3); WHITE BLOOD COUNT 6.18 K/uL (4.8-10.8)
[2017-03-13 07:28] VITALS: BP 125/79; PULSE 71; TEMP 36.6; O2SAT 98
[2017-03-13 08:03] LABS: ALBUMIN 2.7 gm/dl (3.4-5.0); ALKALINE PHOSPHATASE 97 U/L (45-117); ALT/SGPT 8 U/L (12-78); AST/SGOT 11 U/L (15-37); BLOOD UREA NITROGEN 3 mg/dl (7-18); CALCIUM 8.2 mg/dl (8.5-10.1); CARBON DIOXIDE 23 mmol/L (21-32); GLUCOSE 91 mg/dl (70-99); POTASSIUM 3.6 mmol/L (3.5-5.1); SODIUM 141 mmol/L (136-145); TOTAL PROTEIN 6.3 gm/dl (6.4-8.2)
[2017-03-13] MEDS: PIPERACILL/TAZOBAC IV 3.375 GM in DEXTROSE 5% 100ML 100 ML IV SCH ×3 (09:02→23:51)
--- NOTE | 2017-03-13 09:59 | Surgery Progress Note ---
Surgery Progress Note Date of Service Mar 13, 2017. Subjective Post OP Day: HD # 3 + feeling well, + ambulating, + bowel movement, + flatus, + pain controlled, + diet (tolerating clear liquids), No complaints, No chest pain, No nausea, No vomiting Objective Vital Signs: Date Time Temp Pulse Resp B/P (MAP) Pulse Ox O2 Delivery O2 Flow Rate FiO2 03/13/17 07:28 36.6 71 16 125/79 (94) 98 Room Air 03/12/17 23:15 36.8 73 16 116/68 (84) 99 Room Air 03/12/17 19:30 Room Air 03/12/17 15:10 36.5 73 16 118/81 (93) 96 Room Air General Appearance: WD/WN, no apparent distress Head: normocephalic, atraumatic Neck: trachea midline Respiratory/Chest: no respiratory distress, no accessory muscle use Abdomen: non tender (nontender in the LLQ , vastly improved), non distended, soft, no organomegaly, no pulsatile mass Laboratory Results: Results Past 24 Hours Test 03/13/17 07:05 Range/Units White Blood Count 6.18 4.8-10.8 K/uL Red Blood Count 3.66 4.2-5.4 M/uL Hemoglobin 11.1 12.0-16.0 g/dL Hematocrit 33.1 37-47 % Mean Corpuscular Volume 90.4 80-100 fL Mean Corpuscular Hemoglobin 30.3 25-34 pg Mean Corpuscular Hemoglobin Concent 33.5 32-36 g/dl RDW Standard Deviation 41.4 36.4-46.3 fL RDW Coefficient of Variation 12.5 11.5-14.5 % Platelet Count 213 130-400 K/uL Mean Platelet Volume 10.0 7.4-10.4 fL Sodium Level 141 136-145 mmol/L Potassium Level 3.6 3.5-5.1 mmol/L Chloride Level 111 98-107 mmol/L Carbon Dioxide Level 23 21-32 mmol/L Anion Gap 7.0 3-11 mmol/L Blood Urea Nitrogen 3 7-18 mg/dl Creatinine 0.80 0.60-1.20 mg/dl Est Creatinine Clear Calc Drug Dose 74.3 ml/min Estimated GFR () 101.0 Estimated GFR (Non- 87.2 BUN/Creatinine Ratio 3.5 10-20 Random Glucose 91 70-99 mg/dl Calcium Level 8.2 8.5-10.1 mg/dl Magnesium Level 1.9 1.8-2.4 mg/dl Total Bilirubin 0.3 0.2-1 mg/dl Direct Bilirubin < 0.1 0-0.2 mg/dl Aspartate Amino Transf (AST/SGOT) 11 15-37 U/L Alanine Aminotransferase (ALT/SGPT) 8 12-78 U/L Alkaline Phosphatase 97 45-117 U/L Total Protein 6.3 6.4-8.2 gm/dl Albumin 2.7 3.4-5.0 gm/dl Assessment & Plan Acute Diverticulitis with microperforation? - vitals stable, afebrile, leukocytosis resolved - pain in LLQ resolved - small BM and +flatus Plan: May advance diet to full liquids today and then as tolerated Continue IV Zosyn, switch to PO Cipro/Flagyl on discharge for total of 14 days of antibiotics Do not feel repeat CT scan is indicated as patient is having no pain, leukocytosis resolved, afebrile, and tolerating diet. Follow-up in surgical office in 2 weeks Will need outpatient colonoscopy in 6-8 weeks per GI Our services signing off Dr. Pearson has seen and examined patient, agrees with above
[2017-03-13] MEDS: HYDROCODONE/ACETAMI 10/325 TAB PO PRN ×2 (10:03→23:48)
[2017-03-13] MEDS: DOCUSATE SODIUM 100 MG CAP PO SCH (10:03)
[2017-03-13] MEDS: PANTOprazole SOD 40 MG TAB PO SCH (12:17)
[2017-03-13 15:12] VITALS: BP 112/70; PULSE 73; TEMP 36.9; O2SAT 98
--- NOTE | 2017-03-13 16:48 | Progress Note ---
Internal Med Progress Note Date of Service: Mar 13, 2017. Provider Documentation: SUBJECTIVE: resting comfortably abdominal pain resolved tolerating full liquid diet afebrile OBJECTIVE: Vital Signs-as noted below Exam: General-alert and oriented. Not in distress ENT-Normal hearing Neck-no neck masses Lungs-cta b/l no wheezing or crackles Heart-S1 and S2 heard regular rate and rhythm, no murmurs Abdomen-soft bowel sounds present no tenderness no distension Extremities-no edema no erythema Neuro-alert and awake moves extremities Lab data as noted below. ASSESSMENT & PLAN: 47 F presents with acute abdominal pain localized to Left lower quadrant will Leukocytosis , low grade fever , Nausea /diarrhea ACUTE COLONIC DIVERTICULITIS WITH MICROPERFORATION : on iv Zosyn tolerating full liquid diet iv pain med and iv antiemetics prn advance to soft diet plan to d/c home on cipro and Flagyl. ANXIETY DISORDER : PRN IV Ativan ordered for anxiety FULL CODE DVT PROPHYLAXIS : SCD and Teds Ambulate DISPOSITION possible d/c in am Vital Signs: Date Time Temp Pulse Resp B/P (MAP) Pulse Ox O2 Delivery O2 Flow Rate FiO2 03/13/17 15:12 36.9 73 18 112/70 (84) 98 Room Air 03/13/17 08:00 Room Air 03/13/17 07:28 36.6 71 16 125/79 (94) 98 Room Air 03/12/17 23:15 36.8 73 16 116/68 (84) 99 Room Air 03/12/17 19:30 Room Air Lab Results: Results Past 24 Hours Test 03/13/17 07:05 Range/Units White Blood Count 6.18 4.8-10.8 K/uL Red Blood Count 3.66 4.2-5.4 M/uL Hemoglobin 11.1 12.0-16.0 g/dL Hematocrit 33.1 37-47 % Mean Corpuscular Volume 90.4 80-100 fL Mean Corpuscular Hemoglobin 30.3 25-34 pg Mean Corpuscular Hemoglobin Concent 33.5 32-36 g/dl RDW Standard Deviation 41.4 36.4-46.3 fL RDW Coefficient of Variation 12.5 11.5-14.5 % Platelet Count 213 130-400 K/uL Mean Platelet Volume 10.0 7.4-10.4 fL Sodium Level 141 136-145 mmol/L Potassium Level 3.6 3.5-5.1 mmol/L Chloride Level 111 98-107 mmol/L Carbon Dioxide Level 23 21-32 mmol/L Anion Gap 7.0 3-11 mmol/L Blood Urea Nitrogen 3 7-18 mg/dl Creatinine 0.80 0.60-1.20 mg/dl Est Creatinine Clear Calc Drug Dose 74.3 ml/min Estimated GFR () 101.0 Estimated GFR (Non- 87.2 BUN/Creatinine Ratio 3.5 10-20 Random Glucose 91 70-99 mg/dl Calcium Level 8.2 8.5-10.1 mg/dl Magnesium Level 1.9 1.8-2.4 mg/dl Total Bilirubin 0.3 0.2-1 mg/dl Direct Bilirubin < 0.1 0-0.2 mg/dl Aspartate Amino Transf (AST/SGOT) 11 15-37 U/L Alanine Aminotransferase (ALT/SGPT) 8 12-78 U/L Alkaline Phosphatase 97 45-117 U/L Total Protein 6.3 6.4-8.2 gm/dl Albumin 2.7 3.4-5.0 gm/dl
[2017-03-13 23:07] VITALS: BP 130/87; PULSE 88; TEMP 37; O2SAT 98
[2017-03-14 07:03] VITALS: BP 110/68; PULSE 58; TEMP 36.9; O2SAT 98
[2017-03-14 07:25] LABS: HEMATOCRIT 32.8 % (37-47); HEMOGLOBIN 10.9 g/dL (12.0-16.0); MEAN CELL VOLUME 89.9 fL (80-100); MEAN CORPUSCULAR HEMOGLOBIN 29.9 pg (25-34); MEAN CORPUSCULAR HGB CONC 33.2 g/dl (32-36); MEAN PLATELET VOLUME 10.3 fL (7.4-10.4); PLATELET COUNT 242 K/uL (130-400); RED CELL DISTRIBUTION WIDTH CV 12.4 % (11.5-14.5); RED CELL DISTRIBUTION WIDTH SD 40.2 fL (36.4-46.3); WHITE BLOOD COUNT 6.07 K/uL (4.8-10.8)
[2017-03-14] MEDS: PANTOprazole SOD 40 MG TAB PO SCH (07:50)
[2017-03-14] MEDS: HYDROCODONE/ACETAMI 10/325 TAB PO PRN (07:50)
[2017-03-14] MEDS: DOCUSATE SODIUM 100 MG CAP PO SCH (07:51)
[2017-03-14] MEDS: PIPERACILL/TAZOBAC IV 3.375 GM in DEXTROSE 5% 100ML 100 ML IV SCH (07:52)
[2017-03-14 08:05] LABS: ALBUMIN 2.6 gm/dl (3.4-5.0); ALT/SGPT 10 U/L (12-78); BLOOD UREA NITROGEN 4 mg/dl (7-18); CALCIUM 8.4 mg/dl (8.5-10.1); CARBON DIOXIDE 24 mmol/L (21-32); CREATININE 0.84 mg/dl (0.60-1.20); GLUCOSE 85 mg/dl (70-99); POTASSIUM 3.5 mmol/L (3.5-5.1); SODIUM 141 mmol/L (136-145)
[2017-03-14 08:07] LABS: ALKALINE PHOSPHATASE 101 U/L (45-117); AST/SGOT 17 U/L (15-37); TOTAL PROTEIN 6.2 gm/dl (6.4-8.2)
[2017-03-14] MEDS ORDERED: PANTOprazole SOD 40 MG TAB PO SCH (09:00)
[2017-03-14] MEDS ORDERED: CIPR-255 PO (12:53)
[2017-03-14] MEDS ORDERED: METR-163 PO (12:53)
[2017-03-14] MEDS ORDERED: LCTX PO (12:53)
--- NOTE | 2017-03-14 12:55 | Discharge Instructions ---
Discharge Instructions Date of Service Mar 14, 2017. Admission Reason for Admission: Diverticulitis Of Colon Discharge Discharge Diagnosis / Problem: DIVERTICULITIS OF COLON WITH MICROPERFORATION Discharge Goals Goal(s): Decrease discomfort, Improve function Activity Recommendations Activity Limitations: resume your previous activity . Instructions / Follow-Up Instructions / Follow-Up FOLLOWUP WITH FAMILY DOCTOR ON Mar AT 12:55PM COLONOSCOPY IN 6-8 WEEKS WITH FAMILY DOCTOR REFERRAL. Current Hospital Diet Patient's current hospital diet: Low Fiber Diet Discharge Diet Recommended Diet: Low Fiber Diet (LOW FIBER DIET UNTIL SEEN BY FAMILY DOCTOR) Pending Studies Studies pending at discharge: no Medical Emergencies . Who to Call and When: Medical Emergencies: If at any time you feel your situation is an emergency, please call 911 immediately. . Non-Emergent Contact Non-Emergency issues call your: Primary Care Provider . . "Provider Documentation" section prepared by Paul Stringer. . VTE Core Measure Inpt VTE Proph given/why not?: Laila Whitfield, DENISE's
[2017-03-14 13:00] VITALS: BP 110/68; PULSE 58; TEMP 36.9; O2SAT 98
[2017-03-14] MEDS ORDERED: POTASSIUM CHLORIDE 10 MEQ TABCR PO ONE (13:00)
--- NOTE | 2017-03-14 18:36 | Progress Note ---
Internal Med Progress Note Date of Service: Mar 14, 2017. Provider Documentation: SUBJECTIVE: resting comfortably tolerating soft diet no pain ok for discharge OBJECTIVE: Vital Signs-as noted below Exam: General-alert and oriented. Not in distress ENT-Normal hearing Neck-no neck masses Lungs-cta b/l no wheezing or crackles Heart-S1 and S2 heard regular rate and rhythm, no murmurs Abdomen-soft bowel sounds present no tenderness no distension Extremities-no edema no erythema Neuro-alert and awake moves extremities Lab data as noted below. ASSESSMENT & PLAN: 47 F presents with acute abdominal pain localized to Left lower quadrant will Leukocytosis , low grade fever , Nausea /diarrhea ACUTE COLONIC DIVERTICULITIS WITH MICROPERFORATION : on iv Zosyn tolerating full liquid diet iv pain med and iv antiemetics prn tolerating soft diet to d/c home on cipro and Flagyl to complete 14 day course colonoscopy in 6- 8 weeks ANXIETY DISORDER : PRN IV Ativan ordered for anxiety discharged home Vital Signs: Date Time Temp Pulse Resp B/P (MAP) Pulse Ox O2 Delivery O2 Flow Rate FiO2 03/14/17 13:00 36.9 58 16 98 Room Air 03/14/17 11:10 Room Air 03/14/17 07:45 Room Air 03/14/17 07:03 36.9 58 16 110/68 (82) 98 Room Air 03/14/17 00:00 Room Air 03/13/17 23:07 37.0 88 16 130/87 (101) 98 Room Air Lab Results: Results Past 24 Hours Test 03/14/17 06:50 Range/Units White Blood Count 6.07 4.8-10.8 K/uL Red Blood Count 3.65 4.2-5.4 M/uL Hemoglobin 10.9 12.0-16.0 g/dL Hematocrit 32.8 37-47 % Mean Corpuscular Volume 89.9 80-100 fL Mean Corpuscular Hemoglobin 29.9 25-34 pg Mean Corpuscular Hemoglobin Concent 33.2 32-36 g/dl RDW Standard Deviation 40.2 36.4-46.3 fL RDW Coefficient of Variation 12.4 11.5-14.5 % Platelet Count 242 130-400 K/uL Mean Platelet Volume 10.3 7.4-10.4 fL Sodium Level 141 136-145 mmol/L Potassium Level 3.5 3.5-5.1 mmol/L Chloride Level 108 98-107 mmol/L Carbon Dioxide Level 24 21-32 mmol/L Anion Gap 9.0 3-11 mmol/L Blood Urea Nitrogen 4 7-18 mg/dl Creatinine 0.84 0.60-1.20 mg/dl Est Creatinine Clear Calc Drug Dose 70.8 ml/min Estimated GFR () 95.3 Estimated GFR (Non- 82.2 BUN/Creatinine Ratio 4.5 10-20 Random Glucose 85 70-99 mg/dl Calcium Level 8.4 8.5-10.1 mg/dl Magnesium Level 1.9 1.8-2.4 mg/dl Total Bilirubin 0.2 0.2-1 mg/dl Direct Bilirubin < 0.1 0-0.2 mg/dl Aspartate Amino Transf (AST/SGOT) 17 15-37 U/L Alanine Aminotransferase (ALT/SGPT) 10 12-78 U/L Alkaline Phosphatase 101 45-117 U/L Total Protein 6.2 6.4-8.2 gm/dl Albumin 2.6 3.4-5.0 gm/dl
--- NOTE | 2017-03-14 18:52 | Discharge Summary ---
Discharge Summary Date of Service Mar 14, 2017. Discharge Summary Admission Date: Mar 10, 2017 at 18:56 Discharge Date: Mar 14, 2017 Discharge Disposition: Home Principal Diagnosis: ACUTE DIVERTICULITIS WITH MICROPERFORATION Secondary Diagnoses/Problems: (1) Diverticulitis of colon Permanent Comment: Hospitalized twice at [facility]. Status: Resolved (2) Ileitis Status: Resolved (3) Spondylolisthesis, lumbar region Status: Resolved Procedures: CT ABD/PELVIS: Pericolonic fat stranding at the distal descending colon with moderate bowel wall thickening and an inflamed diverticulum. Findings are consistent with acute diverticulitis. Small cluster of gas bubbles posterior to the thickened descending colon could be within a diverticulum or represent focal microperforation. No loculated fluid collections at this time to suggest an abscess. Recommend follow-up to ensure resolution. Consultations: SURGERY GI Medication Reconciliation New Medications: Ciprofloxacin Hcl (Cipro) 500 Mg Tab 500 MG PO BID for 10 Days, #20 TAB Lactobacillus Acidophilus (Lactinex) Tab 2 TAB PO BID for 14 Days, TAB Metronidazole (Flagyl) 500 Mg Tab 500 MG PO TID for 10 Days, #30 TAB Continued Medications: Hydrocodone/Acetaminophen 10MG/325MG ([place] 10MG/325MG) Tab 1-2 TABS PO Q6H PRN for Pain, TAB Lorazepam (Ativan) 1 Mg Tab 1 MG PO Q6H PRN for Anxiety, TAB Admission Information HPI (per Admitting provider): 47 yo F with hx of prior Diverticulitis x2 approx 11 yrs back , presents to ED with complain of severe intractable Left lower quadrant pain , associated with low grade fever , one episode of diarrhea , nausea Her symptom started yesterday afternoon , initially began as a dull aching pain later became severe sharp throbbing pain , associated with nausea , no vomiting pt had prior episodes of Diverticulitis of colon at similar site ( left lower quadrant ) approx 11 yrs back and repeat episode 2-3 yrs after was treated at [facility] Had colonoscopy done by Dr Lizama after Ist episode -was told chronic diverticulosis, no polyp or sign of inflammation noted Did not had any repeat colonoscopy in past 10 yrs during my interview pt was still in sever abdominal pain 11/20 , received 4 mg IV morphine approx 1 hr back , says it only took edge off , but the pain came back in 15 mins WBC elevated [address] ABDOMEN /PELVIS SHOWS : Pericolonic fat stranding at the distal descending colon with moderate bowel wall thickening and an inflamed diverticulum. Findings are consistent with acute diverticulitis. Small cluster of gas bubbles posterior to the thickened descending colon could be within a diverticulum or represent focal microperforation. No loculated fluid collections at this time to suggest an abscess. Physical Exam (per Admitting): General Appearance: + moderate distress Head: normocephalic, atraumatic Eyes: normal inspection, sclerae normal ENT: normal ENT inspection Neck: thyroid normal, no JVD, no carotid bruits, trachea midline Respiratory/Chest: chest non-tender, lungs clear, normal breath sounds, no respiratory distress Cardiovascular: regular rate, rhythm, no edema, normal peripheral pulses Abdomen/GI: + tenderness, + abnormal bowel sounds, + guarding, + rebound, + pertinent finding Extremities/Musculoskelatal: normal inspection, normal capillary refill, no pedal edema Neurologic/Psych: no motor/sensory deficits, alert, oriented x 3 Skin: normal color, warm/dry Lymphatic: no adenopathy Hospital Course 47 F presents with acute abdominal pain localized to Left lower quadrant will Leukocytosis , low grade fever , Nausea /diarrhea ACUTE COLONIC DIVERTICULITIS WITH MICROPERFORATION : on iv Zosyn tolerating full liquid diet iv pain med and iv antiemetics prn tolerating soft diet to d/c home on cipro and Flagyl to complete 14 day course colonoscopy in 6- 8 weeks ANXIETY DISORDER : PRN IV Ativan ordered for anxiety discharged home Total time spent on discharge = 35MINUTES This includes examination of the patient, discharge planning, medication reconciliation, and communication with other providers. Discharge Instructions Discharge Instructions Date of Service Mar 14, 2017. Admission Reason for Admission: Diverticulitis Of Colon Discharge Discharge Diagnosis / Problem: DIVERTICULITIS OF COLON WITH MICROPERFORATION Discharge Goals Goal(s): Decrease discomfort, Improve function Activity Recommendations Activity Limitations: resume your previous activity . Instructions / Follow-Up Instructions / Follow-Up FOLLOWUP WITH FAMILY DOCTOR ON Mar AT 12:55PM COLONOSCOPY IN 6-8 WEEKS WITH FAMILY DOCTOR REFERRAL. Current Hospital Diet Patient's current hospital diet: Low Fiber Diet Discharge Diet Recommended Diet: Low Fiber Diet (LOW FIBER DIET UNTIL SEEN BY FAMILY DOCTOR) Pending Studies Studies pending at discharge: no Medical Emergencies . Who to Call and When: Medical Emergencies: If at any time you feel your situation is an emergency, please call 911 immediately. . Non-Emergent Contact Non-Emergency issues call your: Primary Care Provider . . "Provider Documentation" section prepared by Paul Stringer. . VTE Core Measure Inpt VTE Proph given/why not?: Laila Whitfield, SCD's <Electronically signed by Paul Stringer MD> Signed: 03/14/17 [id number] Signed: The status of this report is Signed * If report status is Draft, the document has not been finalized by the responsible provider.
== END 2017-03-14 14:25 | disposition home or self-care (01) | DRG 392 ==
LOC: C.EDB 16:44 → C.MSN 18:56 → ENRESERV 19:14
PROVIDERS: ADMIT Hospitalist; ATTEND Internal Medicine
DX: K57.20 Diverticulitis of large intestine with perforation and abscess without bleeding (principal); F41.9 Anxiety disorder, unspecified; Z87.19 Personal history of other diseases of the digestive system; Z87.891 Personal history of nicotine dependence

== ENCOUNTER 2021-04-01 12:28 | Inpatient (IN) ==
[2021-04-01] MEDS ORDERED: MoRPHine SULFATE 4 MG/ML 1 ML CARP\\VIAL IV STA ×3 (13:04→20:53)
[2021-04-01] MEDS ORDERED: SODIUM CHLORIDE 0.9% 1000ML 1,000 ML IV STA (13:04)
[2021-04-01] MEDS ORDERED: ONDANSETRON INJ 2 MG/ML 2 ML VIAL IV STA (13:04)
--- NOTE | 2021-04-01 13:08 | Emergency Department Note ---
History of Present Illness General Chief complaint: Abdominal Pain Stated complaint: AB PAIN Time Seen by Provider: 04/01/21 12:57 Source: patient History of Present Illness Provider complaint: Abdominal pain Onset (ago): day(s) Location: abdomen and left Radiation: non-radiation Pain Consistency: + constant Maximum Pain Intensity: 10 Quality: + sharp Relieved By: + none Associated symptoms: + fever/chills and + other (Diarrhea); no chest pain, no cough, no nausea/vomiting or no shortness of breath This is a 51-year-old female with a prior history of diverticulitis presenting with symptoms concerning for diverticulitis. She states the pain is similar. She describes it as sharp and it has been present for 3 days Is located in the left lower quadrant without radiation. No modifying factors. It is associated with diarrhea for the past 3 days without hematochezia. She saw her doctor who sent her here for further evaluation. She had a low-grade temperature of 100 yesterday. She denies any cough or cold symptoms, chest pain, shortness of breath or urinary symptoms. Home Medications Medication Instructions Recorded Confirmed Type ibuprofen 600 mg tablet 600 mg PO Q6H PRN 04/01/21 04/01/21 History Allergies Allergy/AdvReac Type Severity Reaction Status Date / Time No Known Allergies Allergy Unverified 04/01/21 14:02 Past Med/Surg History Medical History Diverticulitis of colon (Unknown) "Hospitalized twice at [facility] [place]. " On 08/05/11 23:07 Flako Heavenly [place] wrote "Hospitalized twice at [facility] [place]. " Surgical History Hx of lumbar discectomy Social History Smoking Status: Former smoker Tobacco Type: Cigarettes Hx Alcohol Use: No Hx Substance Use: No Preferred Language: Qatari Junior Graphic Designer Required: No Beliefs That Will Affect Care: None Current Living Situation: Spouse Other Information That Helps Us Care for You: No Feels Safe at Home: Yes Safety Concerns: Feels Safe At This Time Assistive Devices: None Review of Systems See HPI for pertinent positives & negatives. and A total of 10 systems reviewed and were otherwise negative Physical Exam Vital Signs Vital Signs - 24 hr 04/01/21 12:29 04/01/21 13:32 04/01/21 13:34 Temperature 36.6 C Temperature Source Oral Pulse Rate 77 Pulse Rate [Apical] 85 Pulse Rhythm Regular Pulse Rhythm [Apical] Pulse Strength Normal Pulse Strength [Apical] Respiratory Rate 18 16 Respiratory Effort / Characteristics Non-Labored Spontaneous Respiratory Depth Normal Respiratory Pattern Regular Blood Pressure 131/87 Blood Pressure [Right Arm] Blood Pressure Mean 101 Blood Pressure Mean [Right Arm] Blood Pressure Position [Right Arm] Pulse Oximetry 97 97 96 Oxygen Delivery Method Room Air Room Air Room Air Sepsis Recent Fever Within 48 Hours No Sepsis New/Unexplained Change in Mental Status No Sepsis Action Taken by Nursing No Action Required 04/01/21 14:13 04/01/21 15:00 Temperature Temperature Source Pulse Rate Pulse Rate [Apical] 81 79 Pulse Rhythm Pulse Rhythm [Apical] Regular Pulse Strength Pulse Strength [Apical] Normal Respiratory Rate 16 16 Respiratory Effort / Characteristics Non-Labored Spontaneous Respiratory Depth Normal Respiratory Pattern Regular Blood Pressure Blood Pressure [Right Arm] 135/83 122/85 Blood Pressure Mean Blood Pressure Mean [Right Arm] 100 97 Blood Pressure Position [Right Arm] Sitting Lying Pulse Oximetry 97 96 Oxygen Delivery Method Room Air Sepsis Recent Fever Within 48 Hours Sepsis New/Unexplained Change in Mental Status Sepsis Action Taken by Nursing Constitutional: Vital signs reviewed. Eyes: Pupils are equal round reactive to light. Conjunctiva are noninjected. ENT: Pharynx is clear without erythema or exudate. Mucous membranes are slightly dry. Neck supple without meningeal signs. Respiratory: Clear to auscultation bilaterally. Breath sounds are equal bilaterally. Cardiovascular: Regular rate and rhythm. No rubs or gallops. GI: Soft, nondistended with left lower quadrant tenderness. No rebound tenderness. Bowel sounds are present. Musculoskeletal: No peripheral edema. No lower extremity tenderness. Integumentary: No cyanosis. or jaundice. Neurological: The patient is awake and alert. No focal deficits. Psychiatric: Normal affect. Course Administered Medications Enoxaparin Sodium (Enoxaparin Inj 40 Mg/0.4 Ml Syr) 40 mg SQ Q24H CHARLES Stop: 05/01/21 17:59 Last Admin: 04/01/21 18:01 Dose: 40 mg Documented by: [id number] Sodium Chloride (Nss 1000ml) 1,000 mls @ 80 mls/hr IV .[id number] CHARLES Stop: 05/01/21 17:14 Last Infusion: 04/01/21 17:50 Dose: 80 mls/hr Documented by: [id number] Infusion: 04/01/21 17:20 Dose: 0 mls/hr Documented by: [id number] Admin: 04/01/21 17:17 Dose: 80 mls/hr Documented by: [id number] Morphine Sulfate (Morphine Sulfate 4 Mg/Ml 1 Ml Carp\\Vial) 3 mg IV Q6 PRN PRN Reason: Pain Stop: 04/15/21 16:33 Last Admin: 04/01/21 17:12 Dose: 3 mg Documented by: [id number] Discontinued Medications Sodium Chloride (Nss 1000ml) 1,000 mls @ 999 mls/hr IV .Q1H1M STA Stop: 04/01/21 14:04 Last Infusion: 04/01/21 14:13 Dose: 0 mls/hr Documented by: [id number] Admin: 04/01/21 13:19 Dose: 999 mls/hr Documented by: [id number] Piperacillin Sod/Tazobactam Sod (Zosyn) 4.5 gm in 120 mls @ 240 mls/hr IV NOW ONE Stop: 04/01/21 15:21 Last Infusion: 04/01/21 15:43 Dose: 0 mls/hr Documented by: [id number] Admin: 04/01/21 15:11 Dose: 240 mls/hr Documented by: [id number] Sodium Chloride (Nss) 500 mls @ 80 mls/hr IV .Q6H15M [facility] Stop: 05/01/21 16:44 Last Admin: 04/01/21 17:27 Dose: Not Given Documented by: [id number] Ioversol (Optiray 320 100ml) 93 ml IV ONCE ONE Stop: 04/01/21 14:11 Last Admin: 04/01/21 14:11 Dose: 93 ml Documented by: [id number] Morphine Sulfate (Morphine Sulfate 4 Mg/Ml 1 Ml Carp\\Vial) 4 mg IV NOW STA Stop: 04/01/21 13:05 Last Admin: 04/01/21 13:19 Dose: 4 mg Documented by: [id number] Morphine Sulfate (Morphine Sulfate 4 Mg/Ml 1 Ml Carp\\Vial) 4 mg IV NOW STA Stop: 04/01/21 14:53 Last Admin: 04/01/21 15:08 Dose: 4 mg Documented by: [id number] Ondansetron HCl (Ondansetron Inj 2 Mg/Ml 2 Ml Vial) 4 mg IV NOW STA Stop: 04/01/21 13:05 Last Admin: 04/01/21 13:19 Dose: 4 mg Documented by: [id number] Medical Decision Making Differential Diagnosis Diverticulitis, colitis, perforation, abscess, mass Medical Records Attestation: I reviewed the patient's medical records. I did perform a limited focused review of portions of the patient's old chart on the electronic medical record. The patient was admitted in 2018 for diverticulitis with microperforation. Home Medications Current Medication List: was personally reviewed by me Laboratory Data Attestation: I reviewed the patient's lab results. Result diagrams: 04/01/21 13:23 04/01/21 13:23 Lab Results 04/01/21 04/01/21 04/01/21 Range/Units 13:23 13:23 13:23 WBC 14.41 H (4.8-10.8) K/uL RBC 4.68 (4.2-5.4) M/uL Hgb 14.5 (12.0-16.0) g/dL Hct 43.0 (37-47) % MCV 91.9 (80-100) fL MCH 31.0 (25-34) pg MCHC 33.7 (32-36) g/dL RDW Std Deviation 39.9 (36.4-46.3) fL RDW Coeff of Lopez 11.9 (11.5-14.5) % Plt Count 220 (130-400) K/uL MPV 10.7 H (7.4-10.4) fL Immature Gran % (Auto) 0.2 % Neut % (Auto) 81.4 % Lymph % (Auto) 10.4 % [place] % (Auto) 7.6 % Eos % (Auto) 0.3 % Baso % (Auto) 0.1 % Neut # (Auto) 11.71 H (1.4-6.5) K/uL Lymph # (Auto) 1.50 (1.2-3.4) K/uL [place] # (Auto) 1.10 H (0.11-0.59) K/uL Eos # (Auto) 0.05 (0-0.5) K/uL Baso # (Auto) 0.02 (0-0.2) K/uL Immature Gran # (Auto) 0.03 H (0.00-0.02) K/uL Sodium 139 (136-145) mmol/L Potassium 3.6 (3.5-5.1) mmol/L Chloride 104 (98-107) mmol/L Carbon Dioxide 26 (21-32) mmol/L Anion Gap 9 (3-11) BUN 8 (6-23) mg/dl Creatinine 0.97 (0.6-1.2) mg/dl Est Cr Clr Drug Dosing 58.6 ml/min Est GFR ( Amer) 77.8 ml/min Est GFR (Non-Af Amer) 67.2 ml/min BUN/Creatinine Ratio 8.2 L (10-20) Glucose 82 (70-99(Fasting)) mg/dl Calcium 9.4 (8.5-10.1) mg/dl Total Bilirubin 0.7 (0.2-1.0) mg/dl AST 15 (13-39) U/L ALT 10 (7-52) U/L Alkaline Phosphatase 131 H (34-104) U/L Total Protein 7.5 (6.0-8.3) gm/dl Albumin 4.1 (3.4-5.0) gm/dl Globulin 3.4 (2.5-4.0) gm/dl Albumin/Globulin Ratio 1.2 (0.9-2) Lipase 31 (11-82) U/L Urine Color Dark Yellow Urine Appearance Clear (Clear) Urine pH 5.0 (4.5-7.5) Ur Specific Ralls 1.026 (1.000-1.030) Urine Protein Trace H (Negative) Urine Glucose (UA) Negative (Negative) Urine Ketones 1+ H (Negative) Urine Blood Negative (Negative) Urine Nitrite Positive A (Negative) Urine Bilirubin 1+ H (Negative) Urine Urobilinogen Negative (Negative) Ur Leukocyte Esterase 1+ H (Negative) Urine WBC (Auto) 5-10 H (0-5) /hpf Urine RBC (Auto) 5-10 H (0-4) /hpf U Hyaline Cast (Auto) 1-5 (0-5) /lpf U Epithel Cells (Auto) >30 H (0-5) /lpf Urine Bacteria (Auto) 1+ H (Negative) Ur Renal Epithelial Cell Not Reportable Urine Mucus Present A (None Prsent) POC Ur Test (NEG) SARS-CoV-2, RNA, NAAT (NEGATIVE) 04/01/21 04/01/21 Range/Units 13:23 15:15 WBC (4.8-10.8) K/uL RBC (4.2-5.4) M/uL Hgb (12.0-16.0) g/dL Hct (37-47) % MCV (80-100) fL MCH (25-34) pg MCHC (32-36) g/dL RDW Std Deviation (36.4-46.3) fL RDW Coeff of Lopez (11.5-14.5) % Plt Count (130-400) K/uL MPV (7.4-10.4) fL Immature Gran % (Auto) % Neut % (Auto) % Lymph % (Auto) % [place] % (Auto) % Eos % (Auto) % Baso % (Auto) % Neut # (Auto) (1.4-6.5) K/uL Lymph # (Auto) (1.2-3.4) K/uL [place] # (Auto) (0.11-0.59) K/uL Eos # (Auto) (0-0.5) K/uL Baso # (Auto) (0-0.2) K/uL Immature Gran # (Auto) (0.00-0.02) K/uL Sodium (136-145) mmol/L Potassium (3.5-5.1) mmol/L Chloride (98-107) mmol/L Carbon Dioxide (21-32) mmol/L Anion Gap (3-11) BUN (6-23) mg/dl Creatinine (0.6-1.2) mg/dl Est Cr Clr Drug Dosing ml/min Est GFR ( Amer) ml/min Est GFR (Non-Af Amer) ml/min BUN/Creatinine Ratio (10-20) Glucose (70-99(Fasting)) mg/dl Calcium (8.5-10.1) mg/dl Total Bilirubin (0.2-1.0) mg/dl AST (13-39) U/L ALT (7-52) U/L Alkaline Phosphatase (34-104) U/L Total Protein (6.0-8.3) gm/dl Albumin (3.4-5.0) gm/dl Globulin (2.5-4.0) gm/dl Albumin/Globulin Ratio (0.9-2) Lipase (11-82) U/L Urine Color Urine Appearance (Clear) Urine pH (4.5-7.5) Ur Specific Ralls (1.000-1.030) Urine Protein (Negative) Urine Glucose (UA) (Negative) Urine Ketones (Negative) Urine Blood (Negative) Urine Nitrite (Negative) Urine Bilirubin (Negative) Urine Urobilinogen (Negative) Ur Leukocyte Esterase (Negative) Urine WBC (Auto) (0-5) /hpf Urine RBC (Auto) (0-4) /hpf U Hyaline Cast (Auto) (0-5) /lpf U Epithel Cells (Auto) (0-5) /lpf Urine Bacteria (Auto) (Negative) Ur Renal Epithelial Cell Urine Mucus (None Prsent) POC Ur Test NEG (NEG) SARS-CoV-2, RNA, NAAT NEGATIVE (NEGATIVE) Imaging Data Radiologist's Impression: Abdomen/Pelvis CT 04/01/21 13:04 CT SCAN OF THE ABDOMEN AND PELVIS WITH IV CONTRAST CLINICAL HISTORY: Left lower quadrant abdominal pain. COMPARISON STUDY: Abdominal CT dated 03/10/2017. TECHNIQUE: Following the IV administration of 93 cc of Optiray 320, CT scan of the abdomen and pelvis is performed from the lung bases to the proximal femora. Images are reviewed in the axial, sagittal, and coronal planes. IV contrast was administered without complication. A dose lowering technique was utilized adhering to the principles of ALARA. CT DOSE: 279.77 mGy.cm FINDINGS: Lung bases: The heart is normal in size and without pericardial effusion. The lung bases are clear noting dependent atelectasis. There is a tiny hiatal hernia. Liver: The contrast-enhanced liver is normal in size, contour, and attenuation. There is no intrahepatic biliary ductal dilatation. The hepatic veins and portal veins are patent. Gallbladder: Unremarkable. Spleen: Normal in size and attenuation. Pancreas: Unremarkable. Adrenal glands: Unremarkable. Kidneys: The contrast enhanced kidneys are normal in size and without hydronephrosis. The kidneys enhance symmetrically. Abdominal vasculature: The abdominal aorta is normal in course and caliber. Bowel: There is moderate to advanced colonic diverticulosis. There is significant wall thickening with pericolonic inflammation and fluid seen involving the mid descending colon on image #188 consistent with severe acute diverticulitis. No organized/drainable fluid collection is identified at this site. There is also mild infiltration identified around the proximal sigmoid colon on image #314, which is consistent with a second focus of mild acute diverticulitis. The appendix is well-visualized and normal. No bowel obstruction is identified. Peritoneum: There is no intraperitoneal free air or abdominal ascites. There is a fat-containing umbilical hernia. Lymphadenopathy: None. Pelvic viscera: The bladder wall appears circumferentially thickened with mild pericystic infiltration. The uterus and adnexa are normal as visualized. Skeletal structures: No lytic or blastic lesions are seen. A neurostimulator device is seen in the right gluteal soft tissues. Intrathecal catheter extend into the thoracic spinal canal. There is mild lumbosacral spondylosis with postoperative change from spinal fusion at L4-L5. IMPRESSION: 1. There is moderate to advanced colonic diverticulosis without evidence of severe acute diverticulitis of the mid descending colon. 2. No intraperitoneal free air is seen and there is no organized/drainable fluid collection to suggest abscess. 3. There is also mild acute diverticulitis of the sigmoid colon. 4. Additional findings as above. ACT 112: Negative or not required by law. Electronically signed by: Santiago Owens M.D. 04/01/2021 2:23 PM MDM Narrative I did evaluate the patient as noted above. She is presenting with symptoms consistent with diverticulitis. IV access was established. I did treat her with normal saline, morphine and Zofran IV. I did place an order for continuous cardiac monitoring. The monitor showed normal sinus rhythm at a rate of 70 bpm. I did order a urine analysis. She does have evidence of urinary tract infection with bacteria, mucus, nitrates, WBCs and leukocyte Estrace. Urine test is negative. I did order and review the patient's blood work as noted in the electronic medical record. Her white count is elevated at 14,000. She is not anemic. Electrolytes and LFTs are unremarkable other than alk phos of 131. Lipase is 31. I did order a CT of the abdomen and pelvis. I did review the images myself as well as the radiology report as described above. She has fairly significant diverticulitis of the descending colon and mild diverticulitis of the sigmoid colon. There is no perforation or abscess. I did reevaluate the patient. She is still having pain. I did discuss the test results with her and recommended hospitalization for IV fluids, IV antibiotics and pain control. I did treat the patient with additional morphine IV. She was also given Zosyn. IV. I did obtain a screening COVID test which was negative. I did discuss the case with the hospitalist and medical case manager. Impression & Plan Acute diverticulitis, Acute UTI Discharge Plan Visit Data Chief Complaint: Abdominal Pain Stated Complaint: AB PAIN ED Provider: Gideon Macias Discharge Problem: Acute diverticulitis, Acute UTI Patient Disposition: Admitted As Inpatient Discharge Instructions Interventions: ED Discharge Assessment Last Done: 04/01/21 16:46
[2021-04-01 13:36] LABS: Basophils # (auto) 0.02 K/uL (0-0.2); Basophils % (auto) 0.1 %; Eosinophils # (auto) 0.05 K/uL (0-0.5); Eosinophils % (auto) 0.3 %; Hemoglobin 14.5 g/dL (12.0-16.0); Immature Granulocytes # (auto) 0.03 K/uL (0.00-0.02); Immature Granulocytes % (auto) 0.2 %; Lymphocytes % (auto) 10.4 %; Mean Corpuscular Hgb Conc 33.7 g/dL (32-36); Mean Corpuscular Volume 91.9 fL (80-100); Mean Platelet Volume 10.7 fL (7.4-10.4); Monocytes % (auto) 7.6 %; Neutrophils # (auto) 11.71 K/uL (1.4-6.5); Neutrophils % (auto) 81.4 %; Platelet Count 220 K/uL (130-400); RDW Coefficient of Variation 11.9 % (11.5-14.5); RDW Standard Deviation 39.9 fL (36.4-46.3); Red Blood Count 4.68 M/uL (4.2-5.4); White Blood Count 14.41 K/uL (4.8-10.8)
[2021-04-01 13:41] LABS: Appearance Urine Clear (Clear); Bacteria Urine Automated 1+ (Negative); Blood Urine Negative (Negative); Color Urine Dark Yellow; Epithelial Cell Urine Auto >30 /lpf (0-5); Glucose Urine UA Negative (Negative); Ketones Urine 1+ (Negative); Leukocyte Esterase Urine 1+ (Negative); Nitrite Urine Positive (Negative); Protein Urine Trace (Negative); Specific Gravity Urine 1.026 (1.000-1.030); Urobilinogen Urine Negative (Negative)
[2021-04-01 13:48] LABS: Bilirubin Urine 1+ (Negative)
[2021-04-01 13:59] LABS: Albumin Globulin Ratio 1.2 (0.9-2); Albumin Level 4.1 gm/dl (3.4-5.0); BUN Creatinine Ratio 8.2 (10-20); Bilirubin,Total 0.7 mg/dl (0.2-1.0); Calcium 9.4 mg/dl (8.5-10.1); Creatinine Clr Calc Pharmacy 58.6 ml/min; Est GFR (African American) 77.8 ml/min; Est GFR (Non-African American) 67.2 ml/min; Globulin 3.4 gm/dl (2.5-4.0); Mucus Urine Present (None Prsent); Potassium 3.6 mmol/L (3.5-5.1); Total Protein 7.5 gm/dl (6.0-8.3)
[2021-04-01] MEDS ORDERED: OPTIRAY 320 100ml IV ONE (14:10)
--- NOTE | 2021-04-01 14:24 | CT Scan Report ---
CT SCAN OF THE ABDOMEN AND PELVIS WITH IV CONTRAST CLINICAL HISTORY: Left lower quadrant abdominal pain. COMPARISON STUDY: Abdominal CT dated 03/10/2017. TECHNIQUE: Following the IV administration of 93 cc of Optiray 320, CT scan of the abdomen and pelvi s is performed from the lung bases to the proximal femora. Images are reviewed in the axial, sagittal , and coronal planes. IV contrast was administered without complication. A dose lowering technique wa s utilized adhering to the principles of ALARA. CT DOSE: 279.77 mGy.cm FINDINGS: Lung bases: The heart is normal in size and without pericardial effusion. The lung bases are clear no ting dependent atelectasis. There is a tiny hiatal hernia. Liver: The contrast-enhanced liver is normal in size, contour, and attenuation. There is no intrahepa tic biliary ductal dilatation. The hepatic veins and portal veins are patent. Gallbladder: Unremarkable. Spleen: Normal in size and attenuation. Pancreas: Unremarkable. Adrenal glands: Unremarkable. Kidneys: The contrast enhanced kidneys are normal in size and without hydronephrosis. The kidneys enh ance symmetrically. Abdominal vasculature: The abdominal aorta is normal in course and caliber. Bowel: There is moderate to advanced colonic diverticulosis. There is significant wall thickening wit h pericolonic inflammation and fluid seen involving the mid descending colon on image #188 consistent with severe acute diverticulitis. No organized/drainable fluid collection is identified at this site . There is also mild infiltration identified around the proximal sigmoid colon on image #314, which i s consistent with a second focus of mild acute diverticulitis. The appendix is well-visualized and n ormal. No bowel obstruction is identified. Peritoneum: There is no intraperitoneal free air or abdominal ascites. There is a fat-containing umbi lical hernia. Lymphadenopathy: None. Pelvic viscera: The bladder wall appears circumferentially thickened with mild pericystic infiltratio n. The uterus and adnexa are normal as visualized. Skeletal structures: No lytic or blastic lesions are seen. A neurostimulator device is seen in the ri ght gluteal soft tissues. Intrathecal catheter extend into the thoracic spinal canal. There is mild l umbosacral spondylosis with postoperative change from spinal fusion at L4-L5. IMPRESSION: 1. There is moderate to advanced colonic diverticulosis without evidence of severe acute diverticulit is of the mid descending colon. 2. No intraperitoneal free air is seen and there is no organized/drainable fluid collection to sugges t abscess. 3. There is also mild acute diverticulitis of the sigmoid colon. 4. Additional findings as above. ACT 112: Negative or not required by law. Electronically signed by: Santiago Owens M.D. 04/01/2021 2:23 PM
[2021-04-01] MEDS ORDERED: PIPERACILL/TAZOBAC CONSULT ACTIVE PRN (14:52)
[2021-04-01] MEDS ORDERED: PIPERACILLIN/TAZOBACTAM 4.5 GM/120 ML BAG IV ONE (14:52)
--- NOTE | 2021-04-01 16:19 | History & Physical Report ---
Date of Service April 01, 2021 Assessment & Plan (1) Acute diverticulitis: Plan: Severe acute diverticulitis of colon - Recurrent problem, had multiple hospitalization for same, last in 2018. Leucocytosis, CT A/P with severe acute diverticulitis of mid descending colon and mild diverticulitis of sigmoid colon without abscess or free air - Continue ivf, zosyn, npo, pain management. Gradually advance diet when tolerated. Will need repeat colonoscopy in about 6 weeks - Consider surgery evaluation if fails to improve or complications arise DVT prophyalxis: sc lovenox Code status: Full code Disposition: Medsur Contact: Family updated at bedside. All questions were answered Present on Admission?: Yes History of Present Illness Chief Complaint: left lower abdominal pain Primary Care Provider: NO PCP Patient is a 51-year-old female with history of recurrent diverticulitis who presented to ED with left lower abdomen pain for the past 2 days. Started on as mild left lower abdominal pain. Yesterday it worsened and she did take ibuprofen every 4 hours. She also had nausea and episodes of diarrhea. Also had low-grade fever. Came to the ED today for the same. She has had multiple episodes of diverticulitis over the past 12 years requiring multiple hospitalization. Her last diverticulitis requiring hospitalization was in 2018. Last episode of diverticulitis 1 and half years back. Had colonoscopy around the same time. Also saw surgery 2 years back to discuss sigmoidectomy given recurrent diverticulitis but did not follow-up. In ED, patient was afebrile, hemodynamically stable. Labs showed leukocytosis. CT abdomen pelvis showed severe acute diverticulitis of mid descending colon without complication. She was given IV morphine which brought down her pain from 10 to 3. Also started on Zosyn. She was comfortable during my encounter. Allergies Allergy/AdvReac Type Severity Reaction Status Date / Time No Known Allergies Allergy Unverified 04/01/21 14:02 Home Medications Medication Instructions Recorded Confirmed Type ibuprofen 600 mg tablet 600 mg PO Q6H PRN 04/01/21 04/01/21 History Past Med/Surg History Medical History Diverticulitis of colon (Unknown) "Hospitalized twice at [facility]. " On 08/05/11 23:07 Flako Paz wrote "Hospitalized twice at [facility]. " Surgical History Hx of lumbar discectomy Social History Smoking Status: Former smoker Tobacco Type: Cigarettes Preferred Language: Greek Feels Safe at Home: Yes Review of Systems Review of Systems: All systems reviewed & are unremarkable except as noted in Subjective Physical Exam Physical Exam: General: Well-developed, lying comfortably in bed, not in acute distress, on room air HEENT: EOMI, KALE, MMM Chest: Clear breath sounds bilaterally, no wheezes or crackles CVS: Regular rate and rhythm, normal heart sounds, no murmur Abdomen: Soft, tenderness in left lower quadrant, not distended, normal bowel sounds Neuro: Awake, alert, oriented, conversing well, non focal Extremities: No cyanosis, clubbing or edema Results & Data Results & Data ([facility]) Vital Signs (Past 12 Hours) Vital Signs Temp Pulse Pulse Resp BP BP Pulse Ox 04/01/21 15:00 79 16 122/85 96 04/01/21 14:13 81 16 135/83 97 04/01/21 13:34 85 16 96 04/01/21 13:32 97 04/01/21 12:29 36.6 C 77 18 131/87 97 Laboratory Results Short CBC 04/01/21 Range/Units 13:23 WBC 14.41 H (4.8-10.8) K/uL Hgb 14.5 (12.0-16.0) g/dL Hct 43.0 (37-47) % Plt Count 220 (130-400) K/uL BMP 04/01/21 13:23 Sodium 139 Potassium 3.6 Chloride 104 Carbon Dioxide 26 BUN 8 Creatinine 0.97 Glucose 82 Calcium 9.4 Liver Function 04/01/21 Range/Units 13:23 Total Bilirubin 0.7 (0.2-1.0) mg/dl AST 15 (13-39) U/L ALT 10 (7-52) U/L Alkaline Phosphatase 131 H (34-104) U/L Albumin 4.1 (3.4-5.0) gm/dl Urine 04/01/21 Range/Units 13:23 Urine Color Dark Yellow Urine Appearance Clear (Clear) Urine pH 5.0 (4.5-7.5) Ur Specific [place] 1.026 (1.000-1.030) Urine Protein Trace H (Negative) Urine Glucose (UA) Negative (Negative) Diagnostic Findings Abdomen/Pelvis CT 04/01/21 13:04 CT SCAN OF THE ABDOMEN AND PELVIS WITH IV CONTRAST CLINICAL HISTORY: Left lower quadrant abdominal pain. COMPARISON STUDY: Abdominal CT dated 03/10/2017. TECHNIQUE: Following the IV administration of 93 cc of Optiray 320, CT scan of the abdomen and pelvis is performed from the lung bases to the proximal femora. Images are reviewed in the axial, sagittal, and coronal planes. IV contrast was administered without complication. A dose lowering technique was utilized adhering to the principles of ALARA. CT DOSE: 279.77 mGy.cm FINDINGS: Lung bases: The heart is normal in size and without pericardial effusion. The lung bases are clear noting dependent atelectasis. There is a tiny hiatal hernia. Liver: The contrast-enhanced liver is normal in size, contour, and attenuation. There is no intrahepatic biliary ductal dilatation. The hepatic veins and portal veins are patent. Gallbladder: Unremarkable. Spleen: Normal in size and attenuation. Pancreas: Unremarkable. Adrenal glands: Unremarkable. Kidneys: The contrast enhanced kidneys are normal in size and without hydro nephrosis. The kidneys enhance symmetrically. Abdominal vasculature: The abdominal aorta is normal in course and caliber. Bowel: There is moderate to advanced colonic diverticulosis. There is sign ificant wall thickening with pericolonic inflammation and fluid seen involving the mid descending colon on image #[id number] consistent with severe acute diverticulitis. No organized/drainable fluid collection is identified at this site. There is also mild infiltration identified around the proximal sigmoid colon on image #314, which is consistent with a second focus of mild acute diverticulitis. The appendix is well-visualized and normal. No bowel obstruction is identified. Peritoneum: There is no intraperitoneal free air or abdominal ascites. There is a fat-containing umbilical hernia. Lymphadenopathy: None. Pelvic viscera: The bladder wall appears circumferentially thickened with mild pericystic infiltration. The uterus and adnexa are normal as visualized. Skeletal structures: No lytic or blastic lesions are seen. A neurostimulator device is seen in the right gluteal soft tissues. Intrathecal catheter extend into the thoracic spinal canal. There is mild lumbosacral spondylosis with postoperative change from spinal fusion at L4-L5. IMPRESSION: 1. There is moderate to advanced colonic diverticulosis with evidence of severe acute diverticulitis of the mid descending colon. 2. No intraperitoneal free air is seen and there is no organized/drainable fluid collection to suggest abscess. 3. There is also mild acute diverticulitis of the sigmoid colon. 4. Additional findings as above. ACT 112: Negative or not required by law. Electronically signed by: Santiago Owens M.D. 04/01/2021 2:23 PM Code Status & VTE Plan Code Status Full code VTE Prophylaxis Plan VTE Prophylaxis will be ordered: Yes
[2021-04-01] MEDS ORDERED: MoRPHine SULFATE 4 MG/ML 1 ML CARP\\VIAL IV PRN (16:34)
[2021-04-01] MEDS ORDERED: SODIUM CHLORIDE 0.9% 500 ML IV SCH (16:45)
[2021-04-01] MEDS ORDERED: Nursing to Pharmacy Communication SCH (17:15)
[2021-04-01] MEDS: SODIUM CHLORIDE 0.9% 1000ML 1,000 ML IV SCH (17:17)
[2021-04-01] MEDS: ENOXAPARIN INJ 40 MG/0.4 ML SYR SQ SCH (18:01)
[2021-04-01] MEDS: PIPERACILLIN/TAZOBACTAM 3.375 GM in DEXTROSE 5% 100 ML IV SCH (19:48)
[2021-04-02] MEDS: MoRPHine SULFATE 4 MG/ML 1 ML CARP\\VIAL IV PRN ×5 (00:27→19:15)
[2021-04-02] MEDS: PIPERACILLIN/TAZOBACTAM 3.375 GM in DEXTROSE 5% 100 ML IV SCH ×3 (03:32→20:01)
[2021-04-02] MEDS: SODIUM CHLORIDE 0.9% 1000ML 1,000 ML IV SCH ×2 (06:02→18:15)
[2021-04-02 06:57] LABS: Basophils # (auto) 0.02 K/uL (0-0.2); Basophils % (auto) 0.2 %; Eosinophils # (auto) 0.07 K/uL (0-0.5); Eosinophils % (auto) 0.7 %; Hematocrit (blood only) 37.6 % (37-47); Hemoglobin 12.5 g/dL (12.0-16.0); Immature Granulocytes # (auto) 0.02 K/uL (0.00-0.02); Immature Granulocytes % (auto) 0.2 %; Lymphocytes # (auto) 1.23 K/uL (1.2-3.4); Lymphocytes % (auto) 11.5 %; Mean Corpuscular Hemoglobin 30.9 pg (25-34); Mean Corpuscular Hgb Conc 33.2 g/dL (32-36); Mean Corpuscular Volume 93.1 fL (80-100); Mean Platelet Volume 10.4 fL (7.4-10.4); Monocytes # (auto) 0.72 K/uL (0.11-0.59); Monocytes % (auto) 6.8 %; Neutrophils % (auto) 80.6 %; Platelet Count 196 K/uL (130-400); RDW Coefficient of Variation 11.8 % (11.5-14.5); RDW Standard Deviation 40.4 fL (36.4-46.3); Red Blood Count 4.04 M/uL (4.2-5.4); White Blood Count 10.66 K/uL (4.8-10.8)
[2021-04-02 07:27] LABS: BUN Creatinine Ratio 8.4 (10-20); Calcium 8.2 mg/dl (8.5-10.1); Creatinine Clr Calc Pharmacy 59.8 ml/min; Est GFR (African American) 79.8 ml/min; Est GFR (Non-African American) 68.9 ml/min; Magnesium 1.8 mg/dl (1.7-2.4); Potassium 3.6 mmol/L (3.5-5.1)
[2021-04-02] MEDS ORDERED: ONDANSETRON INJ 2 MG/ML 2 ML VIAL IV PRN (10:33)
--- NOTE | 2021-04-02 16:40 | Hospitalist Progress Note ---
Date of Service April 02, 2021 Assessment & Plan (1) Acute diverticulitis: Plan: Has diverticulosis with history of diverticulitis in 2018 Status post colonoscopy at that time Noted to have acute abdominal pain, distention, nausea and vomiting CT scan did show severe acute diverticulitis involving the mid descending colon Has been started on intravenous Zosyn N.p.o., IV fluid, IV pain medications and antiemetics Has been passing gas but no bowel movement for the last few days Clinically little better If condition gets worse will need to involve surgery Plan: DVT prophylaxis-subcu heparin CODE STATUS Full Admission and Anticipated Discharge Date Admission Date: April 01, 2021 Subjective 04/02/2021 Patient was seen and examined in medical floor She complains to have left lower quadrant pain without any nausea and or vomiting Also has minimal distention and bowel has not moved yet Review of Systems Review of Systems: All systems reviewed and are unremarkable except as noted below Gastrointestinal: Moderate tenderness in the left lower quadrant with rebound but no guarding Physical Exam Physical Exam: Lying in bed with minimal distress due to abdominal discomfort Constitutional: well developed, well nourished, + ill appearing and average body habitus Eyes: PERRL, conjunctivae normal, anicteric sclerae ENMT: external ear and nose normal, oropharynx normal Neck: trachea midline, no thyromegaly Respiratory: no respiratory distress Auscultation: lungs clear to auscultation bilaterally Cardiovascular: Rate/Rhythm: regular rate and regular rhythm; not tachycardic Heart Sounds: normal S1 and normal S2; no murmur Extremities: no edema Gastrointestinal (Abdomen): Inspection/Auscultation: normal bowel sounds (Decreased); abdomen not distended Percussion/Palpation: + abdomen tender (Moderately tender left lower quadrant with rebound tenderness) and abdomen soft Musculoskeletal: No acute arthritis in any joint Neurologic: Alert, awake and oriented x3. No focal sensory or motor deficit appreciated Results & Data Results & Data ([facility]) Vital Signs (Past 12 Hours) Vital Signs Temp Pulse Resp BP Pulse Ox 04/02/21 16:13 37.0 C 79 16 128/84 96 04/02/21 08:23 78 120/77 96 04/02/21 07:20 36.8 C 74 16 97/62 L 94 Laboratory Results Short CBC 04/02/21 Range/Units 06:49 WBC 10.66 (4.8-10.8) K/uL Hgb 12.5 (12.0-16.0) g/dL Hct 37.6 (37-47) % Plt Count 196 (130-400) K/uL [facility] 04/02/21 06:49 Sodium 138 Potassium 3.6 Chloride 107 Carbon Dioxide 20 L BUN 8 Creatinine 0.95 Glucose 67 L Calcium 8.2 L Medications Administered Current Inpatient Medications Enoxaparin Sodium (Enoxaparin Inj 40 Mg/0.4 Ml Syr) 40 mg SQ Q24H [facility] Stop: 05/01/21 17:59 Last Admin: 04/01/21 18:01 Dose: 40 mg Documented by: Sodium Chloride (Nss 1000ml) 1,000 mls @ 80 mls/hr IV .[id number] [facility] Stop: 05/01/21 17:14 Last Infusion: 04/02/21 10:40 Dose: 80 mls/hr Documented by: Piperacillin Sod/Tazobactam (Sod 3.375 gm/ Dextrose) 115 mls @ 28.75 mls/hr IV Q8H [facility]; Protocol Stop: 04/11/21 19:59 Last Infusion: 04/02/21 16:16 Dose: Infused Documented by: Miscellaneous Information (Piperacill/Tazobac Consult Active) 1 ea N/A UD PRN PRN Reason: Consult Stop: 05/01/21 14:51 Morphine Sulfate (Morphine Sulfate 4 Mg/Ml 1 Ml Carp\Vial) 3 mg IV Q3H PRN PRN Reason: Pain Stop: 04/15/21 16:33 Last Admin: 04/02/21 14:14 Dose: 3 mg Documented by: Ondansetron HCl (Ondansetron Inj 2 Mg/Ml 2 Ml Vial) 4 mg IV Q6H PRN PRN Reason: Nausea And Vomiting Stop: 05/02/21 10:32 Last Admin: 04/02/21 10:38 Dose: 4 mg Documented by:
[2021-04-02] MEDS: ENOXAPARIN INJ 40 MG/0.4 ML SYR SQ SCH (18:13)
[2021-04-03] MEDS: PIPERACILLIN/TAZOBACTAM 3.375 GM in DEXTROSE 5% 100 ML IV SCH ×3 (04:09→20:23)
[2021-04-03] MEDS: SODIUM CHLORIDE 0.9% 1000ML 1,000 ML IV SCH (04:13)
[2021-04-03 07:31] LABS: Basophils # (auto) 0.01 K/uL (0-0.2); Basophils % (auto) 0.1 %; Eosinophils # (auto) 0.06 K/uL (0-0.5); Eosinophils % (auto) 0.8 %; Hematocrit (blood only) 36.7 % (37-47); Hemoglobin 12.3 g/dL (12.0-16.0); Immature Granulocytes # (auto) 0.02 K/uL (0.00-0.02); Immature Granulocytes % (auto) 0.3 %; Lymphocytes # (auto) 1.31 K/uL (1.2-3.4); Lymphocytes % (auto) 17.3 %; Mean Corpuscular Hemoglobin 30.8 pg (25-34); Mean Corpuscular Hgb Conc 33.5 g/dL (32-36); Mean Platelet Volume 10.2 fL (7.4-10.4); Monocytes # (auto) 0.53 K/uL (0.11-0.59); Neutrophils # (auto) 5.65 K/uL (1.4-6.5); Neutrophils % (auto) 74.5 %; Platelet Count 202 K/uL (130-400); RDW Coefficient of Variation 11.7 % (11.5-14.5); RDW Standard Deviation 39.9 fL (36.4-46.3); Red Blood Count 3.99 M/uL (4.2-5.4); White Blood Count 7.58 K/uL (4.8-10.8)
[2021-04-03] MEDS: MoRPHine SULFATE 4 MG/ML 1 ML CARP\\VIAL IV PRN ×3 (07:48→20:14)
[2021-04-03 07:55] LABS: BUN Creatinine Ratio 7.4 (10-20); Calcium 8.2 mg/dl (8.5-10.1); Creatinine Clr Calc Pharmacy 70.2 ml/min; Est GFR (African American) 96.8 ml/min; Est GFR (Non-African American) 83.5 ml/min; Potassium 3.9 mmol/L (3.5-5.1)
[2021-04-03] MEDS ORDERED: DEXTROSE 50% 50 ML SYRINGE IV ONE ×2 (10:50→10:52)
[2021-04-03] MEDS ORDERED: D5W AND NSS 1,000 ML IV SCH (11:00)
[2021-04-03] MEDS: D5W AND NSS 1,000 ML IV SCH (14:21)
[2021-04-03] MEDS: ENOXAPARIN INJ 40 MG/0.4 ML SYR SQ SCH (17:35)
--- NOTE | 2021-04-03 18:22 | Hospitalist Progress Note ---
Date of Service April 03, 2021 Assessment & Plan (1) Acute diverticulitis: Plan: Has diverticulosis with history of diverticulitis in 2018 Status post colonoscopy at that time Noted to have acute abdominal pain, distention, nausea and vomiting CT scan did show severe acute diverticulitis involving the mid descending colon Has been started on intravenous Zosyn N.p.o., IV fluid, IV pain medications and antiemetics Has been passing gas but no bowel movement for the last few days Clinically little better If condition gets worse will need to involve surgery Clinically much better and will start clears orally Hypoglycemic episode Noted to be low blood sugar this morning at 60s and later on went down up to 40s with some symptoms Received D50 and D5 infusion Sugar was normalized Plan: DVT prophylaxis-subcu heparin CODE STATUS Full Admission and Anticipated Discharge Date Admission Date: April 01, 2021 Subjective 04/02/2021 Patient was seen and examined in medical floor She complains to have left lower quadrant pain without any nausea and or vomiting Also has minimal distention and bowel has not moved yet 04/03/2021 The patient was seen and examined in medical floor She has had low blood sugar this morning and required intravenous D50 She has been getting D5 half-normal saline at rate of 80 cc an hour Clinically much better and the pain seems to be controlled Review of Systems Review of Systems: All systems reviewed and are unremarkable except as noted below Gastrointestinal: Moderate tenderness in the left lower quadrant with rebound but no guarding Physical Exam Physical Exam: Lying in bed with minimal distress due to abdominal discomfort Constitutional: well developed, well nourished, + ill appearing and average body habitus Eyes: PERRL, conjunctivae normal, anicteric sclerae ENMT: external ear and nose normal, oropharynx normal Neck: trachea midline, no thyromegaly Respiratory: no respiratory distress Auscultation: lungs clear to auscultation bilaterally Cardiovascular: Rate/Rhythm: regular rate and regular rhythm; not tachycardic Heart Sounds: normal S1 and normal S2; no murmur Extremities: no edema Gastrointestinal (Abdomen): Inspection/Auscultation: normal bowel sounds (Decreased); abdomen not distended Percussion/Palpation: + abdomen tender (Moderately tender left lower quadrant with rebound tenderness) and abdomen soft Neurologic: Alert, awake and oriented x3 Results & Data Results & Data ([facility]) Vital Signs (Past 12 Hours) Vital Signs Temp Pulse Resp BP Pulse Ox 04/03/21 15:10 36.7 C 64 16 132/79 99 Laboratory Results Short CBC 04/03/21 Range/Units 07:16 WBC 7.58 (4.8-10.8) K/uL Hgb 12.3 (12.0-16.0) g/dL Hct 36.7 L (37-47) % Plt Count 202 (130-400) K/uL BMP 04/03/21 07:16 Sodium 137 Potassium 3.9 Chloride 108 H Carbon Dioxide 18 L BUN 6 Creatinine 0.81 Glucose 60 L Calcium 8.2 L Medications Administered Current Inpatient Medications Enoxaparin Sodium (Enoxaparin Inj 40 Mg/0.4 Ml Syr) 40 mg SQ Q24H [facility] Stop: 05/01/21 17:59 Last Admin: 04/03/21 17:35 Dose: 40 mg Documented by: Piperacillin Sod/Tazobactam (Sod 3.375 gm/ Dextrose) 115 mls @ 28.75 mls/hr IV Q8H [facility]; Protocol Stop: 04/11/21 19:59 Last Infusion: 04/03/21 15:41 Dose: Infused Documented by: Dextrose/Sodium Chloride (D5w And Nss) 1,000 mls @ 80 mls/hr IV .[id number] [facility] Stop: 05/03/21 12:29 Last Admin: 04/03/21 14:21 Dose: 80 mls/hr Documented by: Miscellaneous Information (Piperacill/Tazobac Consult Active) 1 ea N/A UD PRN PRN Reason: Consult Stop: 05/01/21 14:51 Morphine Sulfate (Morphine Sulfate 4 Mg/Ml 1 Ml Carp\Vial) 3 mg IV Q3H PRN PRN Reason: Pain Stop: 04/15/21 16:33 Last Admin: 04/03/21 16:05 Dose: 3 mg Documented by: Ondansetron HCl (Ondansetron Inj 2 Mg/Ml 2 Ml Vial) 4 mg IV Q6H PRN PRN Reason: Nausea And Vomiting Stop: 05/02/21 10:32 Last Admin: 04/02/21 10:38 Dose: 4 mg Documented by:
[2021-04-04] MEDS: D5W AND NSS 1,000 ML IV SCH ×2 (00:22→11:55)
[2021-04-04] MEDS: PIPERACILLIN/TAZOBACTAM 3.375 GM in DEXTROSE 5% 100 ML IV SCH ×2 (04:07→11:34)
[2021-04-04 07:12] LABS: Basophils # (auto) 0.01 K/uL (0-0.2); Basophils % (auto) 0.2 %; Eosinophils # (auto) 0.11 K/uL (0-0.5); Eosinophils % (auto) 2.1 %; Hematocrit (blood only) 35.7 % (37-47); Immature Granulocytes # (auto) 0.01 K/uL (0.00-0.02); Immature Granulocytes % (auto) 0.2 %; Lymphocytes # (auto) 1.12 K/uL (1.2-3.4); Mean Corpuscular Hemoglobin 30.4 pg (25-34); Mean Corpuscular Hgb Conc 33.6 g/dL (32-36); Mean Corpuscular Volume 90.4 fL (80-100); Mean Platelet Volume 10.3 fL (7.4-10.4); Monocytes # (auto) 0.62 K/uL (0.11-0.59); Monocytes % (auto) 11.6 %; Neutrophils # (auto) 3.47 K/uL (1.4-6.5); Neutrophils % (auto) 64.9 %; Platelet Count 219 K/uL (130-400); RDW Coefficient of Variation 11.7 % (11.5-14.5); RDW Standard Deviation 38.7 fL (36.4-46.3); Red Blood Count 3.95 M/uL (4.2-5.4); White Blood Count 5.34 K/uL (4.8-10.8)
[2021-04-04 07:43] LABS: Albumin Globulin Ratio 1.3 (0.9-2); Albumin Level 3.1 gm/dl (3.4-5.0); BUN Creatinine Ratio 4.3 (10-20); Bilirubin,Total 0.3 mg/dl (0.2-1.0); Calcium 8.1 mg/dl (8.5-10.1); Creatinine Clr Calc Pharmacy 81.2 ml/min; Est GFR (African American) 115.5 ml/min; Est GFR (Non-African American) 99.6 ml/min; Globulin 2.4 gm/dl (2.5-4.0); Potassium 3.4 mmol/L (3.5-5.1); Total Protein 5.5 gm/dl (6.0-8.3)
[2021-04-04] MEDS: MoRPHine SULFATE 4 MG/ML 1 ML CARP\\VIAL IV PRN ×2 (07:56→17:31)
[2021-04-04] MEDS ORDERED: POTASSIUM CHLORIDE CRTAB 20 MEQ TABCR PO ONE (13:56)
[2021-04-04] MEDS: SODIUM CHLORIDE 0.9% 1000ML 1,000 ML IV SCH (15:19)
--- NOTE | 2021-04-04 16:42 | Hospitalist Progress Note ---
Date of Service April 04, 2021 Assessment & Plan (1) Acute diverticulitis: Plan: History of recurrent diverticulitis CT ABD/pelvis - There is moderate to advanced colonic diverticulosis WITH evidence of severe acute diverticulitis of the mid descending colon IV Zosyn (day 3) --> transition to p.o. Augmentin today Tolerating clear liquid diet, advance to full liquid for dinner Continue supportive care with IVF, pain medication, antiemetics Will need outpatient follow-up with GI for colonoscopy Hypokalemia K+ 3.4, replace, follow electrolytes Hypoglycemic episode On 04/03, resolved, no further episodes Received D50 and D5 infusion Glucose normalized DVT prophylaxis SQ heparin Dispo: Likely discharge home the next 1 to 2 days. Admission and Anticipated Discharge Date Admission Date: April 01, 2021 Supervising Physician Co-Signing Physician Notes Attending addendum: The patient was seen and examined in medical floor She has been feeling much better and has minimal pain in the left lower quadrant and in the groin She is tolerating diet without any nausea and or vomiting though her bowel has not moved yet She is ambulating well On examination Hemodynamically stable Abdomenbenign, mildly tender in the left lower quadrant without guarding and bowel sound present Her labs and medications reviewed Diet has been increased to full liquid We will advance diet as tolerated from tomorrow if the pain is controlled Agree with assessment and plan as outlined above by Chrissy Franco Subjective Patient seen and examined. Follow-up for diverticulitis Left lower quadrant pain still present however improving. Patient tolerating clear liquid diet. Denies nausea. No diarrhea. Denies chest pain or shortness of breath. Review of Systems Review of Systems: ROS per HPI, all other systems reviewed and negative Physical Exam Constitutional: WD/WN, vitals as above Respiratory: normal respiratory effort, lungs clear to auscultation Cardiovascular: Rate/Rhythm: regular rate and regular rhythm Vessels: normal peripheral pulses Extremities: no edema Gastrointestinal (Abdomen): Percussion/Palpation: + abdomen tender (Mild, LLQ) and abdomen soft Skin: no rashes, warm and dry Neurologic: no focal motor deficits Psychiatric: A+Ox3, euthymic affect Results & Data Results & Data ([facility]) Vital Signs (Past 12 Hours) Vital Signs Temp Pulse Resp BP BP Pulse Ox 04/04/21 14:19 36.5 C 77 16 126/87 98 02/22/22 11:19 36.6 C 65 18 118/76 98 04/04/21 07:57 36.7 C 83 16 128/85 100 Laboratory Results Short CBC 04/04/21 Range/Units 06:43 WBC 5.34 (4.8-10.8) K/uL Hgb 12.0 (12.0-16.0) g/dL Hct 35.7 L (37-47) % Plt Count 219 (130-400) K/uL BMP 04/04/21 06:43 Sodium 140 Potassium 3.4 L Chloride 111 H Carbon Dioxide 24 BUN 3 L Creatinine 0.70 Glucose 111 H Calcium 8.1 L Liver Function 04/04/21 Range/Units 06:43 Total Bilirubin 0.3 (0.2-1.0) mg/dl AST 12 L (13-39) U/L ALT 5 L (7-52) U/L Alkaline Phosphatase 72 (34-104) U/L Albumin 3.1 L (3.4-5.0) gm/dl
[2021-04-04] MEDS: ENOXAPARIN INJ 40 MG/0.4 ML SYR SQ SCH (17:32)
[2021-04-04] MEDS: AMOXICILLIN/CLAVULANATE 875 MG TAB PO SCH (20:11)
[2021-04-05] MEDS: SODIUM CHLORIDE 0.9% 1000ML 1,000 ML IV SCH (02:59)
[2021-04-05] MEDS: MoRPHine SULFATE 4 MG/ML 1 ML CARP\\VIAL IV PRN (07:32)
[2021-04-05] MEDS: AMOXICILLIN/CLAVULANATE 875 MG TAB PO SCH (07:35)
[2021-04-05 08:28] LABS: Hematocrit (blood only) 41.2 % (37-47); Hemoglobin 13.9 g/dL (12.0-16.0); Mean Corpuscular Hemoglobin 30.5 pg (25-34); Mean Corpuscular Hgb Conc 33.7 g/dL (32-36); Mean Corpuscular Volume 90.4 fL (80-100); Mean Platelet Volume 10.5 fL (7.4-10.4); Platelet Count 257 K/uL (130-400); RDW Coefficient of Variation 11.8 % (11.5-14.5); RDW Standard Deviation 38.6 fL (36.4-46.3); Red Blood Count 4.56 M/uL (4.2-5.4); White Blood Count 5.46 K/uL (4.8-10.8)
[2021-04-05 08:46] LABS: Calcium 8.9 mg/dl (8.5-10.1); Creatinine Clr Calc Pharmacy 86.1 ml/min; Est GFR (African American) 117.7 ml/min; Est GFR (Non-African American) 101.6 ml/min; Magnesium 1.7 mg/dl (1.7-2.4); Potassium 3.8 mmol/L (3.5-5.1)
[2021-04-05] MEDS ORDERED: traMADol HCL 50 MG TABLET PO PRN (09:11)
--- NOTE | 2021-04-05 17:21 | Discharge Summary ---
Date of Service April 05, 2021 Admission HPI Per Admitting Provider Patient is a 51-year-old female with history of recurrent diverticulitis who presented to ED with left lower abdomen pain for the past 2 days. Started on as mild left lower abdominal pain. Yesterday it worsened and she did take ibuprofen every 4 hours. She also had nausea and episodes of diarrhea. Also had low-grade fever. Came to the ED today for the same. She has had multiple episodes of diverticulitis over the past 12 years requiring multiple hospitalization. Her last diverticulitis requiring hospitalization was in 2018. Last episode of diverticulitis 1 and half years back. Had colonoscopy around the same time. Also saw surgery 2 years back to discuss sigmoidectomy given recurrent diverticulitis but did not follow-up. In ED, patient was afebrile, hemodynamically stable. Labs showed leukocytosis. CT abdomen pelvis showed severe acute diverticulitis of mid descending colon without complication. She was given IV morphine which brought down her pain from 10 to 3. Also started on Zosyn. She was comfortable during my encounter. Admission Exam Per Admitting Provider General: Well-developed, lying comfortably in bed, not in acute distress, on room air HEENT: EOMI, KALE, MMM Chest: Clear breath sounds bilaterally, no wheezes or crackles CVS: Regular rate and rhythm, normal heart sounds, no murmur Abdomen: Soft, tenderness in left lower quadrant, not distended, normal bowel sounds Neuro: Awake, alert, oriented, conversing well, non focal Extremities: No cyanosis, clubbing or edema Principal Diagnosis Acute diverticulitis Discharge Exam Constitutional WD/WN, vitals as above Respiratory normal respiratory effort, lungs clear to auscultation Cardiovascular Rate/Rhythm: regular rate and regular rhythm Vessels: normal peripheral pulses Extremities: no edema Gastrointestinal (Abdomen) Percussion/Palpation: abdomen soft; abdomen nontender Skin no rashes, warm and dry Neurologic no focal motor deficits Psychiatric A+Ox3, euthymic affect Discharge Data Allergies Allergy/AdvReac Type Severity Reaction Status Date / Time No Known Allergies Allergy Unverified 04/01/21 14:02 Ordered Studies Laboratory Results WBC 5.46 K/uL (4.8-10.8) 04/05/21 07:58 RBC 4.56 M/uL (4.2-5.4) 04/05/21 07:58 Hgb 13.9 g/dL (12.0-16.0) 04/05/21 07:58 Hct 41.2 % (37-47) 04/05/21 07:58 MCV 90.4 fL (80-100) 04/05/21 07:58 MCH 30.5 pg (25-34) 04/05/21 07:58 MCHC 33.7 g/dL (32-36) 04/05/21 07:58 RDW Std Deviation 38.6 fL (36.4-46.3) 04/05/21 07:58 RDW Coeff of Lopez 11.8 % (11.5-14.5) 04/05/21 07:58 Plt Count 257 K/uL (130-400) 04/05/21 07:58 MPV 10.5 fL (7.4-10.4) H 04/05/21 07:58 Immature Gran % (Auto) 0.2 % 04/04/21 06:43 Neut % (Auto) 64.9 % 04/04/21 06:43 Lymph % (Auto) 21.0 % 04/04/21 06:43 [place] % (Auto) 11.6 % 04/04/21 06:43 Eos % (Auto) 2.1 % 04/04/21 06:43 Baso % (Auto) 0.2 % 04/04/21 06:43 Neut # (Auto) 3.47 K/uL (1.4-6.5) 04/04/21 06:43 Lymph # (Auto) 1.12 K/uL (1.2-3.4) L 04/04/21 06:43 [place] # (Auto) 0.62 K/uL (0.11-0.59) H 04/04/21 06:43 Eos # (Auto) 0.11 K/uL (0-0.5) 04/04/21 06:43 Baso # (Auto) 0.01 K/uL (0-0.2) 04/04/21 06:43 Immature Gran # (Auto) 0.01 K/uL (0.00-0.02) 04/04/21 06:43 Sodium 142 mmol/L (136-145) 04/05/21 07:58 Potassium 3.8 mmol/L (3.5-5.1) 04/05/21 07:58 Chloride 110 mmol/L (98-107) H 04/05/21 07:58 Carbon Dioxide 26 mmol/L (21-32) 04/05/21 07:58 Anion Gap 6 (3-11) 04/05/21 07:58 BUN 2 mg/dl (6-23) L 04/05/21 07:58 Creatinine 0.66 mg/dl (0.6-1.2) 04/05/21 07:58 Est Cr Clr Drug Dosing 86.1 ml/min 04/05/21 07:58 Est GFR ( Amer) 117.7 ml/min 04/05/21 07:58 Est GFR (Non-Af Amer) 101.6 ml/min 04/05/21 07:58 BUN/Creatinine Ratio 3.0 (10-20) L 04/05/21 07:58 Glucose 88 mg/dl (70-99(Fasting)) 04/05/21 07:58 POC Glucose 199 mg/dl (70-99) H 04/03/21 12:18 Calcium 8.9 mg/dl (8.5-10.1) 04/05/21 07:58 Magnesium 1.7 mg/dl (1.7-2.4) 04/05/21 07:58 Total Bilirubin 0.3 mg/dl (0.2-1.0) 04/04/21 06:43 AST 12 U/L (13-39) L 04/04/21 06:43 ALT 5 U/L (7-52) L 04/04/21 06:43 Alkaline Phosphatase 72 U/L (34-104) 04/04/21 06:43 Total Protein 5.5 gm/dl (6.0-8.3) L 04/04/21 06:43 Albumin 3.1 gm/dl (3.4-5.0) L 04/04/21 06:43 Globulin 2.4 gm/dl (2.5-4.0) L 04/04/21 06:43 Albumin/Globulin Ratio 1.3 (0.9-2) 04/04/21 06:43 Lipase 31 U/L (11-82) 04/01/21 13:23 Urine Color Dark Yellow 04/01/21 13:23 Urine Appearance Clear (Clear) 04/01/21 13:23 Urine pH 5.0 (4.5-7.5) 04/01/21 13:23 Ur Specific [place] 1.026 (1.000-1.030) 04/01/21 13:23 Urine Protein Trace (Negative) H 04/01/21 13:23 Urine Glucose (UA) Negative (Negative) 04/01/21 13:23 Urine Ketones 1+ (Negative) H 04/01/21 13:23 Urine Blood Negative (Negative) 04/01/21 13:23 Urine Nitrite Positive (Negative) A 04/01/21 13:23 Urine Bilirubin 1+ (Negative) H 04/01/21 13:23 Urine Urobilinogen Negative (Negative) 04/01/21 13:23 Ur Leukocyte Esterase 1+ (Negative) H 04/01/21 13:23 Urine WBC (Auto) 5-10 /hpf (0-5) H 04/01/21 13:23 Urine RBC (Auto) 5-10 /hpf (0-4) H 04/01/21 13:23 U Hyaline Cast (Auto) 1-5 /lpf (0-5) 04/01/21 13:23 U Epithel Cells (Auto) >30 /lpf (0-5) H 04/01/21 13:23 Urine Bacteria (Auto) 1+ (Negative) H 04/01/21 13:23 Ur Renal Epithelial Cell Not Reportable 04/01/21 13:23 Urine Mucus Present (None Prsent) A 04/01/21 13:23 POC Ur Test NEG (NEG) 04/01/21 13:23 SARS-CoV-2, RNA, NAAT NEGATIVE (NEGATIVE) 04/01/21 15:15 Impressions Abdomen/Pelvis CT 04/01/21 13:04 CT SCAN OF THE ABDOMEN AND PELVIS WITH IV CONTRAST CLINICAL HISTORY: Left lower quadrant abdominal pain. COMPARISON STUDY: Abdominal CT dated 03/10/2017. TECHNIQUE: Following the IV administration of 93 cc of Optiray 320, CT scan of the abdomen and pelvis is performed from the lung bases to the proximal femora. Images are reviewed in the axial, sagittal, and coronal planes. IV contrast was administered without complication. A dose lowering technique was utilized adhering to the principles of ALARA. CT DOSE: 279.77 mGy.cm FINDINGS: Lung bases: The heart is normal in size and without pericardial effusion. The lung bases are clear noting dependent atelectasis. There is a tiny hiatal hernia. Liver: The contrast-enhanced liver is normal in size, contour, and attenuation. There is no intrahepatic biliary ductal dilatation. The hepatic veins and portal veins are patent. Gallbladder: Unremarkable. Spleen: Normal in size and attenuation. Pancreas: Unremarkable. Adrenal glands: Unremarkable. Kidneys: The contrast enhanced kidneys are normal in size and without hydronephrosis. The kidneys enhance symmetrically. Abdominal vasculature: The abdominal aorta is normal in course and caliber. Bowel: There is moderate to advanced colonic diverticulosis. There is significant wall thickening with pericolonic inflammation and fluid seen involving the mid descending colon on image #[id number] consistent with severe acute diverticulitis. No organized/drainable fluid collection is identified at this site. There is also mild infiltration identified around the proximal sigmoid colon on image #314, which is consistent with a second focus of mild acute diverticulitis. The appendix is well-visualized and normal. No bowel obstruction is identified. Peritoneum: There is no intraperitoneal free air or abdominal ascites. There is a fat-containing umbilical hernia. Lymphadenopathy: None. Pelvic viscera: The bladder wall appears circumferentially thickened with mild pericystic infiltration. The uterus and adnexa are normal as visualized. Skeletal structures: No lytic or blastic lesions are seen. A neurostimulator device is seen in the right gluteal soft tissues. Intrathecal catheter extend into the thoracic spinal canal. There is mild lumbosacral spondylosis with postoperative change from spinal fusion at L4-L5. IMPRESSION: 1. There is moderate to advanced colonic diverticulosis without evidence of severe acute diverticulitis of the mid descending colon. 2. No intraperitoneal free air is seen and there is no organized/drainable fluid collection to suggest abscess. 3. There is also mild acute diverticulitis of the sigmoid colon. 4. Additional findings as above. ACT 112: Negative or not required by law. Electronically signed by: Santiago Owens M.D. 04/01/2021 2:23 PM Hospital Course (1) Acute diverticulitis: Patient is a 51-year-old female with history of recurrent diverticulitis who presented to ED with left lower abdomen pain for the past 2 days ([employer]). CT ABD/pelvis - There is moderate to advanced colonic diverticulosis WITH evidence of severe acute diverticulitis of the mid descending colon Initially received IV Zosyn --> transitioned to p.o. Augmentin on 04/04. Discharged on p.o. Augmentin twice daily for an additional 7 days. Diet advanced to low fiber, patient tolerated. Will need outpatient follow-up with GI for colonoscopy Hypokalemia Resolved, K+ 3.8 on 04/05 Hypoglycemic episode On 04/03, resolved, no further episodes Received D50 and D5 infusion Glucose normalized Total Time Total Time Spent Total Time Spent (In Minutes): 35 Discharge Plan Discharge Items Patient Disposition: Home - Self-Care Reason For Visit: Abdominal Pain Discharge Diagnosis: Diverticulitis Activity: As commented below Activity Comment: as tolerated, you may return to work on 04/08/21 Non-emergency contact: Primary Care Provider Call non-emergency contact if: you have any medication questions Follow-up/Referrals: [facility] [Provider Group] Aly Chacko MD [Outside Practitioners] - 04/11/21 11:00 am (covering for Dr. Magaña) Diet: Low Fiber Addtl Attending Provider Instructions: You came to the hospital for evaluation of abdominal pain. You were found to have diverticulitis. You were treated with IV antibiotics and will be discharged on Augmentin twice daily for an additional 7 days. Tramadol has been prescribed for pain. Take this as needed and use with caution. Follow a low fiber diet. Due to recurrent diverticulitis, you need to GI as an outpatient. Your PCP can place this referral. It was a pleasure taking care of you. If you need to reach a member of the [facility] Hospitalist team at [facility], please call [phone]. BRANDI Aparicio Pending Studies at Discharge: No Stand-Alone Forms: My [facility], Smoking Cessation Medications and DC Order Prescriptions: New tramadol 50 mg Tablet 50 mg PO Q8H PRN (Reason: pain) Qty: 7 RF: 0 amoxicillin-pot clavulanate 875-125 mg tablet 1 tab PO BID Qty: 14 RF: 0 Continued ibuprofen 600 mg Tablet 600 mg PO Q6H PRN (Reason: Pain) RF: 0 Discharge Orders: Discharge Order (Routine); Ordered 04/05/21 Ordered By: Chrissy Castillo/Other Patient Handouts: Low-Fiber Diet, Diverticulosis and Diverticulitis, Understanding Colitis Admission Data Admit Date/Time: 04/01/21 16:02 Attending Provider: Amador Jaime Admit Provider: Jasiel Bowen Primary Care Provider: PCP,IRWIN Other Providers: Jasiel Bowen ; Lamont Franco Other Interventions: Discharge Summary Assessment (RN) Last Done: 04/05/21 14:43
== END 2021-04-05 15:25 | disposition home or self-care (01) | DRG 392 ==
LOC: ED 12:28 → 3W 16:02 → SUATTDRO 16:02 → 3W 16:46